=== PATIENT | male | born 1980 | race Caucasian/White ===

== ENCOUNTER 2017-12-26 12:14 | Observation (INO) ==
[2017-12-26] MEDS ORDERED: 0.9 % Sodium Chloride 1,000 ML IVC ONE ×2 (13:10→14:51)
[2017-12-26 13:11] LABS: Bilirubin,Urine Negative (Negative); Blood,Urine Negative (Negative); Clarity,Urine Clear (Clear); Color,Urine Yellow (Yellow); Glucose,Urine (UA) >=1000 mg/dL (Normal); Ketones,Urine 40 mg/dL (Negative); Leukocyte Esterase,Urine Negative (Negative); Nitrite,Urine Negative (Negative); Protein,Urine Negative (Neg-Trace); Specific Gravity,Urine > 1.030 (1.010-1.025); Urobilinogen,Urine Normal (Normal)
[2017-12-26 13:28] LABS: Basophils % 0.3 %; Eosinophils # 0.1 K/mcL (0.0-0.6); Eosinophils % 0.9 %; Hematocrit 37.6 % (37.5-50.1); Hemoglobin 12.8 g/dL (12.9-16.9); Immature Granulocytes % 0.3 % (0-4); Lymphocytes # 1.3 K/mcL (0.6-4.6); Lymphocytes % 20.3 %; Mean Corpuscular Hemoglobin 31.8 pg (28.0-33.3); Mean Corpuscular Volume 93.3 fL (83.0-100.0); Mean Platelet Volume 10.4 fL (9.4-12.4); Monocytes # 0.4 K/mcL (0.0-1.3); Monocytes % 6.6 %; Neutrophils # 4.7 K/mcL (1.6-8.9); Platelet Count 111 K/mcL (140-400); Red Blood Count 4.03 M/mcL (4.19-5.50); Red Cell Distribution Width 12.5 % (11.5-14.5); Segmented Neutrophils % 71.6 %
--- NOTE | 2017-12-26 14:15 | Emergency Department Note ---
Disposition Clinical Impression: Hyperglycemia, Bilateral lower extremity edema, Anxiety and depression, Tobacco abuse Hepatitis C Qualifiers: Viral hepatitis chronicity: chronic Hepatic coma status: without hepatic coma Qualified Code(s): B18.2 - Chronic viral hepatitis C Diabetes mellitus Qualifiers: Diabetes mellitus type: type 2 Diabetes mellitus long-term insulin use: without termite control representative use Diabetes mellitus complication status: with hyperglycemia Qualified Code(s): E11.65 - Type 2 diabetes mellitus with hyperglycemia Disposition: Admitted As Inpatient Condition: Good Time of Disposition: 16:29 General Adult HPI - General Chief complaint: ED General Medical Stated complaint: Bi-lateral leg swelling,Diabetic Time Seen by Provider: 12/26/17 12:54 Source: patient, family Limitations: no limitations Nursing Notes Reviewed: Yes Vital Signs Reviewed: Yes - History of Present Illness HPI Narrative: 37-year-old male with known past medical history of type 2 diabetes insulin Dependent presenting to the emergency Department chief complaint of bilateral lower extremity edema. Patient states the swelling has been going on for a few days. Denies any other complaints at this time. Denies chest pain, shortness of breath, dizziness or headache. Patient states he washed his glucometer and has not been able to check his glucose at home. According to friend in the room , patient has not been controlling his glucose at home. His recently and the patient is moving from [place]. He has not been taking care of himself. Patient is cachectic in the room. Pain Scale: 9 - Related Data Home Medications Medication Instructions Recorded Confirmed Cyclobenzaprine [Flexeril] 10 mg PO TID PRN 12/26/17 Insulin Admin. Supplies 12 unit SQ BID 12/26/17 Lisinopril [Zestril] 20 mg PO DAILY 12/26/17 Quetiapine Fumarate [Seroquel] 200 mg PO BID 12/27/17 Allergies Allergy/AdvReac Type Severity Reaction Status Date / Time Penicillins Allergy Difficulty Verified 12/26/17 12:51 Breathing All systems ED: reviewed and negative except as stated. Musculoskeletal: Reports: other (lower extremity swelling) Past Medical History - Past Medical History Attestation: Yes The following information was validated with the patient. Medical history: Reports: diabetes Psychiatric history: Reports: anxiety - Social History Smoking Status: Current every day smoker Smokeless Tobacco Status: No Alcohol use: Reports: none Drug use: Reports: none Physical Exam - General Limitations: no limitations General appearance: alert, in no apparent distress - Head Head exam: atraumatic, normocephalic, normal inspection - Eye Eye exam: Present: normal appearance. Absent: scleral icterus, conjunctival injection - ENT ENT exam: mucous membranes dry - Neck Neck exam: Present: normal inspection, full ROM. Absent: tenderness, meningismus - Chest Chest inspection: Present: normal inspection, symmetric chest wall rise. Absent : tenderness, rash - Respiratory Respiratory exam: Present: normal lung sounds bilaterally. Absent: respiratory distress, wheezes - Cardiovascular Cardiovascular exam: Present: regular rate, normal rhythm, normal heart sounds - Abdominal Exam Abdominal exam: Present: soft, Non-Tender. Absent: distention, guarding, rebound - Extremities Exam Extremities exam: Present: full ROM, other (Bilateral lower extremity 1+ pitting edema neurovascularly intact.) - Neurological Exam Neurological exam: Present: alert, oriented X3 - Psychiatric Psychiatric exam: Present: normal affect, normal mood - Skin Skin exam: Present: warm, intact Course Course Narrative: 37-year-old male presenting to the emergency Department chief complaint of bilateral lower extremity edema. Patient is cachectic on exam. Patient putting care glucose upon arrival was greater than 600. Concern for DKA and malnutrition at this time. We will perform DKA workup and provide the patient with 2 L of fluid at this time. Patient most likely will be admitted pending results. Patient is alert and oriented 3 in the room with stable vital signs. He agrees with this plan. - Reevaluation(s) Reevaluation #1: Patient's glucose 979. Patient is not acidotic on the VBG. Bicarbonate is not below 20. We will provide the patient with 16 units of subcutaneous insulin and a maintenance fluid of 125 mL. Patient also has decreased albumin. Patient also found to have elevated liver enzymes. Patient has no previous values to compare this to. At this time we will plan to admit the patient at this time for hyperglycemia and possible social work consult. Patient is alert and oriented 3 in the room with stable vital signs. He agrees with this plan. I spoke with the hospital was food production associate Dr. Mortensen who agrees to accept the patient at this time. Vital Signs Temperature 97.0 F L 12/26/17 12:21 Pulse Rate 87 12/26/17 12:21 Respiratory Rate 16 12/26/17 12:21 Blood Pressure 140/87 12/26/17 12:21 O2 Sat by Pulse Oximetry 98 12/26/17 12:21 Temperature 97.7 F 12/28/17 03:50 Pulse Rate 74 12/28/17 03:50 Respiratory Rate 17 12/28/17 03:50 Blood Pressure 107/74 12/28/17 03:50 O2 Sat by Pulse Oximetry 98 12/28/17 03:50 Oxygen Delivery Oxygen Delivery Room Air Medical Decision Making - Medical Records Medical records reviewed: Yes I reviewed the patient's medical records. - Lab Data Lab results reviewed: Yes I reviewed the patient's lab results. Result diagrams: 12/27/17 03:23 12/28/17 04:42 Lab Results 12/26/17 12/26/17 12/26/17 Range/Units 12:32 12:34 12:50 WBC (4.3-11.1) K/mcL RBC (4.19-5.50) M/mcL Hgb (12.9-16.9) g/dL Hct (37.5-50.1) % MCV (83.0-100.0) fL MCH (28.0-33.3) pg MCHC (31.6-35.5) g/dL RDW (11.5-14.5) % Plt Count (140-400) K/mcL MPV (9.4-12.4) fL Immature Gran % (0-4) % Seg Neutrophils % % Lymphocytes % % Monocytes % % Eosinophils % % Basophils % % Neutrophils # (1.6-8.9) K/mcL Lymphocytes # (0.6-4.6) K/mcL Monocytes # (0.0-1.3) K/mcL Eosinophils # (0.0-0.6) K/mcL Basophils # (0.0-0.2) K/mcL VBG pH (7.32-7.42) pH Units VBG pCO2 (41-51) mmHg VBG pO2 (25-50) mmHg VBG HCO3 (21-27) mEq/L Sodium (136-145) mEq/L Potassium (3.5-5.1) mEq/L Chloride (98-107) mEq/L Carbon Dioxide (23-29) mEq/L BUN (6-20) mg/dL Creatinine (0.70-1.30) mg/dL Est GFR ( Amer) (> 60) Est GFR (Non-Af Amer) (> 60) BUN/Creatinine Ratio (6-26) Glucose (70-105) mg/dL POC Glucose > 600 H* > 600 H* (58-89) Calculated Osmolality (280-300) Calcium (8.6-10.3) mg/dL Magnesium (1.6-2.6) mg/dL Total Bilirubin (0.3-1.0) mg/dL AST (13-39) Units/L ALT (7-52) Units/L Alkaline Phosphatase (34-104) Units/L B-Natriuretic Peptide (Less than 100) pg/mL Serum Total Protein (6.4-8.9) g/dL Albumin (3.5-5.7) g/dL Globulin (2.4-3.5) g/dL Albumin/Globulin Ratio (1.1-2.2) Beta-Hydroxybutyric Acd (0.02-0.27) mmol/L Urine Color Yellow (Yellow) Urine Clarity Clear (Clear) Urine pH 6.0 (5.0-8.0) pH Units Ur Specific [place] > 1.030 H (1.010-1.025) Urine Protein Negative (Neg-Trace) mg/dL Urine Glucose (UA) >=1000 H (Normal) mg/dL Urine Ketones 40 H (Negative) mg/dL Urine Blood Negative (Negative) Urine Nitrite Negative (Negative) Urine Bilirubin Negative (Negative) Urine Urobilinogen Normal (Normal) mg/dL Ur Leukocyte Esterase Negative (Negative) Ur Culture Indicated? NO (NO) 12/26/17 12/26/17 12/26/17 Range/Units 13:21 13:21 13:21 WBC 6.6 (4.3-11.1) K/mcL RBC 4.03 L (4.19-5.50) M/mcL Hgb 12.8 L (12.9-16.9) g/dL Hct 37.6 (37.5-50.1) % MCV 93.3 (83.0-100.0) fL MCH 31.8 (28.0-33.3) pg MCHC 34.0 (31.6-35.5) g/dL RDW 12.5 (11.5-14.5) % Plt Count 111 L (140-400) K/mcL MPV 10.4 (9.4-12.4) fL Immature Gran % 0.3 (0-4) % Seg Neutrophils % 71.6 % Lymphocytes % 20.3 % Monocytes % 6.6 % Eosinophils % 0.9 % Basophils % 0.3 % Neutrophils # 4.7 (1.6-8.9) K/mcL Lymphocytes # 1.3 (0.6-4.6) K/mcL Monocytes # 0.4 (0.0-1.3) K/mcL Eosinophils # 0.1 (0.0-0.6) K/mcL Basophils # 0.0 (0.0-0.2) K/mcL VBG pH (7.32-7.42) pH Units VBG pCO2 (41-51) mmHg VBG pO2 (25-50) mmHg VBG HCO3 (21-27) mEq/L Sodium 123 L (136-145) mEq/L Potassium 4.5 (3.5-5.1) mEq/L Chloride 86 L (98-107) mEq/L Carbon Dioxide 26 (23-29) mEq/L BUN 18 (6-20) mg/dL Creatinine 0.70 (0.70-1.30) mg/dL Est GFR ( Amer) > 60 (> 60) Est GFR (Non-Af Amer) > 60 (> 60) BUN/Creatinine Ratio 26 (6-26) Glucose 979 H* (70-105) mg/dL POC Glucose (58-89) Calculated Osmolality 307 H (280-300) Calcium 8.8 (8.6-10.3) mg/dL Magnesium 1.8 (1.6-2.6) mg/dL Total Bilirubin 0.5 (0.3-1.0) mg/dL AST 194 H (13-39) Units/L ALT 122 H (7-52) Units/L Alkaline Phosphatase 217 H (34-104) Units/L B-Natriuretic Peptide (Less than 100) pg/mL Serum Total Protein 6.4 (6.4-8.9) g/dL Albumin 3.4 L (3.5-5.7) g/dL Globulin 3.0 (2.4-3.5) g/dL Albumin/Globulin Ratio 1.1 (1.1-2.2) Beta-Hydroxybutyric Acd > 2.00 H (0.02-0.27) mmol/L Urine Color (Yellow) Urine Clarity (Clear) Urine pH (5.0-8.0) pH Units Ur Specific [place] (1.010-1.025) Urine Protein (Neg-Trace) mg/dL Urine Glucose (UA) (Normal) mg/dL Urine Ketones (Negative) mg/dL Urine Blood (Negative) Urine Nitrite (Negative) Urine Bilirubin (Negative) Urine Urobilinogen (Normal) mg/dL Ur Leukocyte Esterase (Negative) Ur Culture Indicated? (NO) 12/26/17 12/26/17 Range/Units 13:21 14:30 WBC (4.3-11.1) K/mcL RBC (4.19-5.50) M/mcL Hgb (12.9-16.9) g/dL Hct (37.5-50.1) % MCV (83.0-100.0) fL MCH (28.0-33.3) pg MCHC (31.6-35.5) g/dL RDW (11.5-14.5) % Plt Count (140-400) K/mcL MPV (9.4-12.4) fL Immature Gran % (0-4) % Seg Neutrophils % % Lymphocytes % % Monocytes % % Eosinophils % % Basophils % % Neutrophils # (1.6-8.9) K/mcL Lymphocytes # (0.6-4.6) K/mcL Monocytes # (0.0-1.3) K/mcL Eosinophils # (0.0-0.6) K/mcL Basophils # (0.0-0.2) K/mcL VBG pH 7.41 (7.32-7.42) pH Units VBG pCO2 39 L (41-51) mmHg VBG pO2 119 H (25-50) mmHg VBG HCO3 25 (21-27) mEq/L Sodium (136-145) mEq/L Potassium (3.5-5.1) mEq/L Chloride (98-107) mEq/L Carbon Dioxide (23-29) mEq/L BUN (6-20) mg/dL Creatinine (0.70-1.30) mg/dL Est GFR ( Amer) (> 60) Est GFR (Non-Af Amer) (> 60) BUN/Creatinine Ratio (6-26) Glucose (70-105) mg/dL POC Glucose (58-89) Calculated Osmolality (280-300) Calcium (8.6-10.3) mg/dL Magnesium (1.6-2.6) mg/dL Total Bilirubin (0.3-1.0) mg/dL AST (13-39) Units/L ALT (7-52) Units/L Alkaline Phosphatase (34-104) Units/L B-Natriuretic Peptide 50 (Less than 100) pg/mL Serum Total Protein (6.4-8.9) g/dL Albumin (3.5-5.7) g/dL Globulin (2.4-3.5) g/dL Albumin/Globulin Ratio (1.1-2.2) Beta-Hydroxybutyric Acd (0.02-0.27) mmol/L Urine Color (Yellow) Urine Clarity (Clear) Urine pH (5.0-8.0) pH Units Ur Specific [place] (1.010-1.025) Urine Protein (Neg-Trace) mg/dL Urine Glucose (UA) (Normal) mg/dL Urine Ketones (Negative) mg/dL Urine Blood (Negative) Urine Nitrite (Negative) Urine Bilirubin (Negative) Urine Urobilinogen (Normal) mg/dL Ur Leukocyte Esterase (Negative) Ur Culture Indicated? (NO) - EKG Data EKG #1 EKG attestation: Yes I reviewed and interpreted this EKG. EKG results narrative: Sinus rhythm. 70 bpm. WI interval 151, QRS 105, QTC 426. No signs of acute ST segment elevation or ischemia. Attestation Statement - Attestation Attestation: I examined this patient and my medical decision-making was reviewed with the Resident Physician, Dr. Garcia. I agree with the documented findings, disposition and treatment plan as described except to the extent set forth below. Patient is a 37-year-old white male who presents to the emergency department today with history of diabetes that is poorly controlled stating that his sugars are elevated and he is "not been feeling well". Patient appears cachectic, malnourished, and states that he is "not been doing well since his passed recently" and admittedly reports noncompliance with his medication regimen and not caring for himself. Patient recently moved from [place] and is not obtained at new physician in the area or had meds for some time. Patient denies any chest pain pressure or heaviness, no shortness of breath, no recent upper respiratory symptoms cough or sore throat, he is feeling nauseated with decreased appetite but no vomiting, no bowel changes and no abdominal pain or flank pain. Patient denies any suicidal or homicidal ideation but is tearful at times stating that he is just not been dealing very well for his 's . Physical exam findings as documented. Patient was in no acute distress but ill appearing at bedside on arrival. Patient had 2 L of IV fluids administered, labs drawn and sent as well as urinalysis. Suspicion for possible DKA but no obvious underlying infectious etiology more due to noncompliance. Patient with significantly elevated blood sugar at 979 with no acidosis. Patient received 2 L of fluids and then was converted to a maintenance IV as well as subcutaneous insulin. Patient has mild elevation in LFTs possibly related to hep C. Case was discussed with the hospitalist who accepted the patient for admission for further evaluation and management as well as case management social worker consult.
[2017-12-26] MEDS ORDERED: Ipratropium/Albuterol Neb 3 ML IH ONE (14:20)
[2017-12-26 14:33] LABS: VBG HCO3 25 mEq/L (21-27); VBG PCO2 39 mmHg (41-51); VBG PH 7.41 pH Units (7.32-7.42); VBG PO2 119 mmHg (25-50)
[2017-12-26 14:44] LABS: Alanine Aminotransferase 122 Units/L (7-52); Albumin 3.4 g/dL (3.5-5.7); Albumin/Globulin Ratio 1.1 (1.1-2.2); Alkaline Phosphatase 217 Units/L (34-104); Aspartate Amino Transferase 194 Units/L (13-39); BUN/Creatinine Ratio 26 (6-26); Bilirubin,Total 0.5 mg/dL (0.3-1.0); Blood Urea Nitrogen 18 mg/dL (6-20); Calcium 8.8 mg/dL (8.6-10.3); Carbon Dioxide 26 mEq/L (23-29); Chloride 86 mEq/L (98-107); Magnesium 1.8 mg/dL (1.6-2.6); Potassium 4.5 mEq/L (3.5-5.1); Sodium 123 mEq/L (136-145); Total Protein 6.4 g/dL (6.4-8.9); eGFR For African Americans > 60 (> 60); eGFR For Non-African Americans > 60 (> 60)
[2017-12-26] MEDS ORDERED: Ketorolac 15 MG/ML VIAL IVP ONE (14:57)
[2017-12-26 15:39] LABS: Osmolality,Calculated 307 (280-300)
[2017-12-26 15:42] LABS: Glucose 979 mg/dL (70-105)
[2017-12-26] MEDS ORDERED: Insulin Regular, Human 100 UNIT/ML SQ ONE (15:44)
[2017-12-26] MEDS ORDERED: *HR* LORazepam 0.5 MG TABLET PO ONE (16:10)
[2017-12-26] MEDS ORDERED: Naloxone 0.4 MG/ML INJ IVP PRN (18:40)
[2017-12-26] MEDS ORDERED: *HR* Dextrose 50 % in Water (Syg) 50 ML SYRINGE IVP PRN (18:42)
[2017-12-26] MEDS ORDERED: Dextrose Gel 15 GM/37.5 ML TUBE PO PRN ×2 (18:42)
[2017-12-26] MEDS ORDERED: D5% in Water 1,000 ML IVC PRN (18:42)
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
[2017-12-26] MEDS: 0.9 % Sodium Chloride 1,000 ML IVC SCH (19:38)
[2017-12-26 20:12] LABS: BUN/Creatinine Ratio 17 (6-26); Blood Urea Nitrogen 14 mg/dL (6-20); Calcium 9.2 mg/dL (8.6-10.3); Carbon Dioxide 22 mEq/L (23-29); Chloride 93 mEq/L (98-107); Glucose 510 mg/dL (70-105); Osmolality,Calculated 295 (280-300); Potassium 3.8 mEq/L (3.5-5.1); Sodium 131 mEq/L (136-145); eGFR For African Americans > 60 (> 60); eGFR For Non-African Americans > 60 (> 60)
[2017-12-26] MEDS: Insulin DETEMIR 100 UNIT/ML X5UNITS SQ SCH (20:53)
[2017-12-26] MEDS ORDERED: Insulin LISPRO 300 UNITS/3 ML VIAL SQ SCH (21:00)
[2017-12-26] MEDS: *HR* OxyCODONE Immed Rel 5 MG TABLET PO PRN (21:40)
[2017-12-26 22:04] LABS: Amphetamine Screen,Urine Negative ng/mL (Cutoff=1000); Barbiturate Screen,Urine Negative ng/mL (Cutoff=200); Benzodiazepines Screen,Urine Negative ng/mL (Cutoff=200); Cannabinoid Screen,Urine Negative ng/mL (Cutoff = 50); Cocaine Screen,Urine Positive ng/mL (Cutoff= 300); Opiate Screen,Urine Positive ng/mL (Cutoff=300); Phencyclidine Screen,Urine Negative ng/mL (Cutoff=25)
[2017-12-26] MEDS ORDERED: Insulin LISPRO 300 UNITS/3 ML VIAL SQ ONE (23:45)
[2017-12-27] MEDS: ALPRAZolam 0.5 MG TABLET PO PRN ×3 (00:55→21:20)
[2017-12-27] MEDS: traMADol 50 MG TABLET PO PRN ×2 (00:57→15:55)
[2017-12-27] MEDS ORDERED: Gabapentin 300 MG CAPSULE PO ONE (01:13)
[2017-12-27] MEDS: Nicotine 21 MG PATCH.TD24 TD SCH ×2 (01:53→10:15)
[2017-12-27 04:10] LABS: Basophils % 0.5 %; Eosinophils # 0.1 K/mcL (0.0-0.6); Eosinophils % 1.9 %; Hematocrit 33.1 % (37.5-50.1); Hemoglobin 11.8 g/dL (12.9-16.9); Immature Granulocytes % 0.2 % (0-4); Lymphocytes # 2.5 K/mcL (0.6-4.6); Mean Corpuscular HGB Conc 35.6 g/dL (31.6-35.5); Mean Corpuscular Hemoglobin 31.7 pg (28.0-33.3); Mean Platelet Volume 10.8 fL (9.4-12.4); Monocytes # 0.5 K/mcL (0.0-1.3); Monocytes % 7.9 %; Neutrophils # 2.8 K/mcL (1.6-8.9); Platelet Count 117 K/mcL (140-400); Red Blood Count 3.72 M/mcL (4.19-5.50); Red Cell Distribution Width 12.5 % (11.5-14.5); Segmented Neutrophils % 47.5 %
[2017-12-27 04:32] LABS: Alanine Aminotransferase 101 Units/L (7-52); Albumin 2.9 g/dL (3.5-5.7); Albumin/Globulin Ratio 1.2 (1.1-2.2); Alkaline Phosphatase 135 Units/L (34-104); Aspartate Amino Transferase 118 Units/L (13-39); BUN/Creatinine Ratio 20 (6-26); Bilirubin,Total 0.4 mg/dL (0.3-1.0); Blood Urea Nitrogen 13 mg/dL (6-20); Calcium 8.5 mg/dL (8.6-10.3); Carbon Dioxide 30 mEq/L (23-29); Chloride 99 mEq/L (98-107); Globulin 2.5 g/dL (2.4-3.5); Glucose 343 mg/dL (70-105); Osmolality,Calculated 290 (280-300); Potassium 3.7 mEq/L (3.5-5.1); Sodium 133 mEq/L (136-145); Total Protein 5.4 g/dL (6.4-8.9); eGFR For African Americans > 60 (> 60); eGFR For Non-African Americans > 60 (> 60)
[2017-12-27] MEDS ORDERED: Insulin LISPRO 300 UNITS/3 ML VIAL SQ SCH ×5 (07:30→21:00)
[2017-12-27] MEDS: 0.9 % Sodium Chloride 1,000 ML IVC SCH ×2 (07:44→07:45)
[2017-12-27] MEDS ORDERED: Nicotine 21 MG PATCH.TD24 TD SCH (09:00)
[2017-12-27] MEDS: Insulin DETEMIR 100 UNIT/ML X5UNITS SQ SCH ×2 (10:14→22:14)
[2017-12-27] MEDS: Insulin LISPRO 300 UNITS/3 ML VIAL SQ SCH ×4 (10:16→19:43)
[2017-12-27] MEDS: *HR* Enoxaparin 40 MG/0.4 ML SYRINGE SQ SCH (13:11)
[2017-12-27] MEDS: *HR* OxyCODONE Immed Rel 5 MG TABLET PO PRN ×2 (13:11→19:42)
[2017-12-27 14:42] LABS: Hemoglobin A1C > 18.7 %
[2017-12-27] MEDS: Gabapentin 300 MG CAPSULE PO SCH (21:20)
--- NOTE | 2017-12-27 22:35 | Internal Med Progress Note ---
Date of Encounter: 12/27/17 Time of Encounter: 22:30 - Assessment and plan (1) Bilateral lower extremity edema Current Visit: Yes Status: Acute Assessment and plan: ECHO with LVEF 60-65%, otherwise normal. Continue leg elevation. (2) Hyperglycemia Current Visit: Yes Status: Acute Assessment and plan: Plan as per DM plan below. (3) Anxiety and depression Current Visit: Yes Status: Chronic Assessment and plan: Continue PRN xanax. Will need outpatient psychiatric evaluation. (4) Chronic back pain Current Visit: Yes Status: Chronic Assessment and plan: Chronic issue. Continue tylenol and oxycodone PRN. Qualifiers: Back pain location: low back pain Back pain laterality: midline Sciatica presence: without sciatica Qualified Code(s): M54.5 - Low back pain; G89.29 - Other chronic pain; G89.29 - Other chronic pain (5) Diabetes mellitus Current Visit: Yes Status: Chronic Assessment and plan: Improving. Continue accuchecks and high dose SSI QID AC/HS. Increase levemir to 15 units BID. Increase mealtime lispro to 10 units TID with meals. Plan for discharge tomorrow when blood glucose more lower and more stable with changes. Qualifiers: Diabetes mellitus type: type 2 Diabetes mellitus half-way insulin use: without manager terminal use Diabetes mellitus complication status: with hyperglycemia Qualified Code(s): E11.65 - Type 2 diabetes mellitus with hyperglycemia (6) Hepatitis C Current Visit: Yes Status: Chronic Assessment and plan: Poor outpatient follow up. Abdominal U/S showed hepatomegaly with increased echogenicity of the liver compatible with diffuse hepatocellular disease, hepatic steatosis. Transaminitis, likely related to poor blood glucose, improving. Restart outpatient GI follow up. Recheck CMP in AM. Qualifiers: Viral hepatitis chronicity: chronic Hepatic coma status: without hepatic coma Qualified Code(s): B18.2 - Chronic viral hepatitis C (7) Tobacco abuse Current Visit: Yes Status: Chronic Assessment and plan: Continue nicotine transdermal PRN. (8) DVT prophylaxis Current Visit: Yes Status: Acute Assessment and plan: Continue SC lovenox. - Time Spent With Patient less than 15 minutes - Subjective Interval history: Patient had no acute events overnight. He states that he is doing better this AM. Continues to have some swelling in BLE ankles. He does not recall home insulin regimen. He has some pain in his back, but this is a chronic issue for him. He denies SOB or chest pain. He has no other complaints. - Constitutional Vitals: Temp Pulse Resp BP Pulse Ox 98.3 F 81 18 118/87 98 12/27/17 19:01 12/27/17 19:01 12/27/17 19:01 12/27/17 19:01 12/27/17 19:01 General appearance: Present: cachectic, cooperative, A&O X 3, pleasant, no acute distress, answers questions appropriately - Respiratory Respiratory exam: Present: CTAB. Absent: accessory muscle use, rales, rhonchi, wheezes Additional comments: Normal WOB - Cardiovascular Cardiovascular exam: Present: RRR, +S1, +S2. Absent: diastolic murmur, gallop, rubs, systolic murmur - GI/Abdominal GI/Abdominal exam: Present: normal bowel sounds, soft. Absent: distended, hepatomegaly, mass, splenomegaly, tenderness - Psychiatric Psychiatric exam: Present: normal affect, normal mood. Absent: anxious, depressed - Skin Skin exam: Present: dry, intact, warm. Absent: cyanosis, rash Internal Medicine: Result - Labs CBC & Chem 7: 12/27/17 03:23 12/27/17 03:23 Labs: Short CBC 12/27/17 Range/Units 03:23 WBC 5.9 (4.3-11.1) K/mcL Hgb 11.8 L (12.9-16.9) g/dL Hct 33.1 L (37.5-50.1) % Plt Count 117 L (140-400) K/mcL Neutrophils # 2.8 (1.6-8.9) K/mcL BMP 12/27/17 03:23 Sodium 133 L Potassium 3.7 Chloride 99 Carbon Dioxide 30 H BUN 13 Creatinine 0.65 L Glucose 343 H Calcium 8.5 L Liver Function 12/27/17 Range/Units 03:23 Total Bilirubin 0.4 (0.3-1.0) mg/dL AST 118 H (13-39) Units/L ALT 101 H (7-52) Units/L Alkaline Phosphatase 135 H (34-104) Units/L Albumin 2.9 L (3.5-5.7) g/dL - Impressions Impressions Abdomen Ultrasound 12/27/17 07:00 IMPRESSION: Hepatomegaly with increased echogenicity of the liver compatible with diffuse hepatocellular disease, hepatic steatosis. No definite focal lesion noted. Trace amount of ascites surrounding the liver and within the gallbladder fossa. Gallbladder is incompletely distended and otherwise unremarkable in appearance. Right kidney is increased in echogenicity. There is mild fullness of the renal collecting system. Please correlate with patient's urinalysis and renal function. D/ / 12/27/2017 09:12:28 Wero Jimenez MD / nate Interpreting Provider: Wero Jimenez MD Echocardiogram 12/27/17 08:46 Impressions: LVEF 60-65%. Normal LV chamber size, wall thickness and function. Normal left ventricular diastolic function. Normal right ventricular structure and function. No evidence of pulmonary hypertension. There is a trivial pericardial effusion present. Left Ventricular Wall Motion: Rest Echo Findings All wall segments showed normal motion. Findings: Study Quality * Technically adequate exam. ECG Findings * Normal sinus rhythm. Left Ventricle * LVEF 60-65%. * Normal LV chamber size, wall thickness and function. * Normal left ventricular diastolic function. Right Ventricle * Normal right ventricular structure and function. Left Atrium * Mildly dilated left atrium. Right Atrium * Normal right atrial size. Interatrial Septum * No evidence of PFO by color Doppler. Aortic Valve * Trileaflet aortic valve with normal function. * No aortic regurgitation. * No aortic stenosis. Mitral Valve * Normal mitral valve structure and function. * No mitral regurgitation. * No mitral stenosis. Tricuspid Valve * Normal tricuspid valve structure and function. * Trace tricuspid regurgitation. * No evidence of pulmonary hypertension. Pulmonic Valve * Normal pulmonic valve structure and function. * No pulmonic regurgitation. Aorta * Normally sized aortic root. Pericardium * There is a trivial pericardial effusion present. IVC * Normal IVC dimensions and inspiratory collapse. Pulmonary Artery * Normal visualized portions of the main pulmonary artery. Consult Discharge Plan - Plan Referrals: NONE,PCP [Primary Care Provider] - Felix Chew [Family Provider] -
[2017-12-28] MEDS: *HR* OxyCODONE Immed Rel 5 MG TABLET PO PRN ×3 (02:01→15:00)
[2017-12-28] MEDS: Insulin LISPRO 300 UNITS/3 ML VIAL SQ SCH ×7 (02:02→12:46)
[2017-12-28] MEDS: *HR* Enoxaparin 40 MG/0.4 ML SYRINGE SQ SCH (05:05)
[2017-12-28] MEDS: ALPRAZolam 0.5 MG TABLET PO PRN ×2 (05:13→12:45)
[2017-12-28 05:29] LABS: Alanine Aminotransferase 232 Units/L (7-52); Albumin/Globulin Ratio 1.1 (1.1-2.2); Alkaline Phosphatase 155 Units/L (34-104); Aspartate Amino Transferase 535 Units/L (13-39); BUN/Creatinine Ratio 14 (6-26); Bilirubin,Total 0.4 mg/dL (0.3-1.0); Blood Urea Nitrogen 8 mg/dL (6-20); Calcium 8.5 mg/dL (8.6-10.3); Carbon Dioxide 26 mEq/L (23-29); Chloride 97 mEq/L (98-107); Globulin 2.8 g/dL (2.4-3.5); Glucose 351 mg/dL (70-105); Osmolality,Calculated 280 (280-300); Potassium 3.5 mEq/L (3.5-5.1); Sodium 129 mEq/L (136-145); Total Protein 5.8 g/dL (6.4-8.9); eGFR For African Americans > 60 (> 60); eGFR For Non-African Americans > 60 (> 60)
[2017-12-28] MEDS: Nicotine 21 MG PATCH.TD24 TD SCH (08:05)
[2017-12-28] MEDS: Gabapentin 300 MG CAPSULE PO SCH ×2 (08:05→15:00)
[2017-12-28] MEDS: Insulin DETEMIR 100 UNIT/ML X5UNITS SQ SCH (08:06)
[2017-12-28 11:53] VITALS: BP 105/74
[2017-12-28] MEDS: traMADol 50 MG TABLET PO PRN (12:45)
--- NOTE | 2017-12-28 14:49 | Discharge Summary ---
- NOTES TO OUTPATIENT PROVIDER Notes to Outpatient Provider: Follow up with new PCP in 2-3 days after discharge. Recheck CMP at that time. Will need referral by PCP to GI for hepatitis C management. Date of Encounter: 12/28/17 Time of Encounter: 14:47 - Discharge Diagnosis (1) Hyperglycemia Priority: Primary Status: Acute (2) Bilateral lower extremity edema Priority: Secondary Status: Acute (3) Anxiety and depression Priority: Secondary Status: Chronic (4) Chronic back pain Priority: Secondary Status: Chronic Qualifiers: Back pain location: low back pain Back pain laterality: midline Sciatica presence: without sciatica Qualified Code(s): M54.5 - Low back pain; G89.29 - Other chronic pain; G89.29 - Other chronic pain (5) Diabetes mellitus Priority: Secondary Status: Chronic Qualifiers: Diabetes mellitus type: type 2 Diabetes mellitus care home insulin use: without care home use Diabetes mellitus complication status: with hyperglycemia Qualified Code(s): E11.65 - Type 2 diabetes mellitus with hyperglycemia (6) Hepatitis C Priority: Secondary Status: Chronic Qualifiers: Viral hepatitis chronicity: chronic Hepatic coma status: without hepatic coma Qualified Code(s): B18.2 - Chronic viral hepatitis C (7) Tobacco abuse Priority: Secondary Status: Chronic (8) DVT prophylaxis Priority: Secondary Status: Acute Hospital course: Mr. Taveras is a 37 year old male admitted for BLE edema and hyperglycemia. He was admitted for observation to general medical floor with telemetry. Given BLE edema, ECHO was obtained and showed LVEF of 60-65% with no abnormalities noted. Given history of hepatitis C and transaminitis, abdominal/liver ultrasound was obtained and showed hepatomegaly with increased echogenicity of the liver compatible with diffuse hepatocellular disease, hepatic steatosis; trace ascites surrounding liver; unremarkable gallbladder; and mild fullness of renal collecting system. BLE edema nearly resolved on day of discharge with elevation of feet and correction of hyperglycemia. Hyperglycemia greatly improved with administration of high dose sliding scale insulin QID AC/HS. He did not recall home insulin regimen, so started on and titrate levemir to 15 units BID and lispro 10 units TID with meals. He will be discharged home with 7 days of all home medications. He will establish with new PCP and follow up in 2-3 days after discharge. Patient has met maximum benefit of this hospitalization and will be discharged home in stable condition. Discharge discussed with: patient, nurse - Time Spent with Patient Total time spent providing and/or coordinating discharge services: Greater than 30 minutes - Discharge Medications Prescriptions: OxyCODONE Immed Rel [Roxicodone 5 MG] 10 mg PO Q6HR PRN 7 Days #28 tablet PRN Reason: Severe Pain ALPRAZolam [Xanax 0.5 MG Tablet] 0.5 mg PO Q8HR PRN 7 Days #21 tablet PRN Reason: Anxiety Cyclobenzaprine [Flexeril] 10 mg PO TID PRN 7 Days #21 tablet PRN Reason: Muscle Spasm Gabapentin [Neurontin] 600 mg PO TID 7 Days #21 capsule Insulin DETEMIR [Levemir] 15 unit SQ BID 7 Days #1 vial Insulin LISPRO [HumaLOG] 10 units SQ TIDAC 7 Days #1 vial Lisinopril [Zestril] 20 mg PO DAILY 7 Days #7 tablet Quetiapine Fumarate [Seroquel] 200 mg PO BID 7 Days #14 tablet Home Medications: ALPRAZolam [Xanax 0.5 MG Tablet] 0.5 mg PO Q8HR PRN 7 Days #21 tablet 12/28/17 [ Rx] Cyclobenzaprine [Flexeril] 10 mg PO TID PRN 7 Days #21 tablet 12/28/17 [Rx] Gabapentin [Neurontin] 600 mg PO TID 7 Days #21 capsule 12/28/17 [Rx] Insulin DETEMIR [Levemir] 15 unit SQ BID 7 Days #1 vial 12/28/17 [Rx] Insulin LISPRO [HumaLOG] 10 units SQ TIDAC 7 Days #1 vial 12/28/17 [Rx] Lisinopril [Zestril] 20 mg PO DAILY 7 Days #7 tablet 12/28/17 [Rx] OxyCODONE Immed Rel [Roxicodone 5 MG] 10 mg PO Q6HR PRN 7 Days #28 tablet [Rx] Quetiapine Fumarate [Seroquel] 200 mg PO BID 7 Days #14 tablet 12/28/17 [Rx] Allergies/Adverse Reactions: 3 Allergy/AdvReac Type Severity Reaction Status Date / Time Penicillins Allergy Difficulty Verified 12/26/17 12:51 Breathing Date of admission: 12/26/17 19:29 Primary care physician: PCP NONE Consults: 12/26/17 21:11 Consult to Nutrition [CONS] Routine Comment: Recent weight loss, non-compliant diabetic Consulting Provider: NUTRITION Reason for Dietary Consult: Diet Education MST Score Other 12/27/17 08:53 Consult to Diabetes Education [CONS] Stat Comment: Reason for Consult: DM Education 12/28/17 08:07 Consult to Diabetes Education [CONS] Stat Comment: Reason for Consult: DM Education Discharging clinician: Ayaan Milton Anticipated date of discharge: 12/28/17 - Constitutional Vitals: Temp Pulse Resp BP Pulse Ox 98.7 F 81 14 105/74 97 12/28/17 11:48 12/28/17 11:48 12/28/17 11:48 12/28/17 11:48 12/28/17 11:48 General appearance: Present: cachectic, cooperative, A&O X 3, pleasant, no acute distress, answers questions appropriately - Respiratory Respiratory exam: Present: CTAB. Absent: accessory muscle use, rales, rhonchi, wheezes Additional comments: Normal WOB - Cardiovascular Cardiovascular exam: Present: RRR, +S1, +S2. Absent: diastolic murmur, gallop, rubs, systolic murmur Additional comments: Trace ankle edema, greatly improved from yesterday - GI/Abdominal GI/Abdominal exam: Present: normal bowel sounds, soft. Absent: distended, hepatomegaly, mass, splenomegaly, tenderness - Psychiatric Psychiatric exam: Present: normal affect, normal mood. Absent: anxious, depressed - Skin Skin exam: Present: dry, intact, warm. Absent: cyanosis, rash - Patient Status Disposition: Home, Self-Care Condition: Good Functional capacity at discharge: independent ambulation Overall status at discharge: patient is progressing back to baseline - Discharge Instructions Follow Up With: NONE,PCP [Primary Care Provider] - Felix Chew [Family Provider] - Additional Instructions: Follow up with new PCP in 2-3 days after discharge. Recheck CMP at that time. Will need referral by PCP to GI for hepatitis C management. - Diet and Activity Activity: resume usual activities as tolerated Diet: diabetic diet
[2017-12-28] MEDS ORDERED: Insulin LISPRO 300 UNITS/3 ML VIAL SQ SCH (21:00)
--- NOTE | 2017-12-31 16:18 | Electrocardiograph Report ---
[place] [id number] Test Date: 2017-12-26 Pat Name: Lucien Taveras Department: 103 Room: [facility] Gender: M [employer]: MSC : [id number] Requested By: Keya Tejeda Order Number: [id number] Reading MD: Valerie Gong Measurements Intervals [place] Rate: 70 P: 76 MN: 151 QRS: 71 QRSD: 105 T: 51 QT: 404 QTc: 426 Interpretive Statements SINUS RHYTHM Electronically Signed On 12-31-2017 15:49:58 EDT by Valerie Gong
== END 2017-12-28 16:23 | disposition home or self-care (01) ==
LOC: 2NENU 12:14 → EMEROO 12:14 → 2NENU 20:19
PROVIDERS: ADMIT Family Medicine; ATTEND Family Medicine

== ENCOUNTER 2018-05-27 17:46 | Observation (INO) ==
[2018-05-27] MEDS ORDERED: 0.9 % Sodium Chloride 1,000 ML IVC ONE (18:18)
[2018-05-27] MEDS ORDERED: Metoclopramide 10 MG/2 ML VIAL IVP ONE (18:20)
--- NOTE | 2018-05-27 18:23 | Emergency Department Note ---
Disposition Clinical Impression: Acalculous cholecystitis Disposition: Admitted As Inpatient Condition: Good Referrals: NONE,PCP [Primary Care Provider] - Felix Chew [Family Provider] - Forms: ED Satisfaction Letter Time of Disposition: 20:36 General Adult HPI - General Chief complaint: ED Recheck/Abnormal Lab/Rx Stated complaint: multiple complaints Time Seen by Provider: 05/27/18 18:06 Source: patient Limitations: no limitations Nursing Notes Reviewed: Yes Vital Signs Reviewed: Yes - History of Present Illness HPI Narrative: This is a 37-year-old male who comes to emergency department complaining of elevated blood sugar yesterday and took him to another hospital emergency department. He also states that starting 48 hours prior to arrival he has had significant right upper quadrant pain. He reports 3 episodes of diarrhea in 8 hours prior to arrival, stating that he had none prior to that time during the last 2-3 days. He has not measured his blood sugar today but states that he came to the emergency department here because of his worsening right upper quadrant pain. Pain Scale: 9 - Related Data Home Medications Medication Instructions Recorded Confirmed Buspirone HCl [Buspar] 10 mg PO TID 05/27/18 05/27/18 Escitalopram [Lexapro] 5 mg PO DAILY 05/27/18 05/27/18 Famotidine [Pepcid] 20 mg PO BID 05/27/18 05/27/18 Gabapentin [Neurontin] 300 mg PO TID 05/27/18 05/27/18 Ibuprofen [Ibu] 600 mg PO TID PRN 05/27/18 05/27/18 Insulin Glargine,Hum.rec.anlog 16 unit SQ BID 05/27/18 05/27/18 [Basaglar Kwikpen U-100] Insulin LISPRO [HumaLOG] 8 units SQ TIDAC 05/27/18 05/27/18 Quetiapine Fumarate [Seroquel] 50 mg PO HS 05/27/18 05/27/18 Tizanidine HCl [Tizanidine HCl] 4 mg PO TID 05/27/18 05/27/18 Previous Rx's Medication Instructions Recorded Lisinopril [Zestril] 20 mg PO DAILY 7 Days #7 tablet 12/28/17 Allergies Allergy/AdvReac Type Severity Reaction Status Date / Time Penicillins Allergy Difficulty Verified 12/26/17 12:51 Breathing All systems ED: reviewed and negative except as stated. Gastrointestinal: Reports: abdominal pain, diarrhea Endocrine: Reports: polyuria, other (Elevated blood glucose) Past Medical History - Past Medical History Medical history: Reports: diabetes Surgical history: Reports: no surgical history Psychiatric history: Reports: anxiety - Social History Smoking Status: Current every day smoker Smokeless Tobacco Status: No Alcohol use: Reports: none Drug use: Reports: none Physical Exam - General Limitations: no limitations General appearance: alert, in distress (In mild distress), cachectic - Head Head exam: atraumatic, normocephalic, normal inspection - Eye Eye exam: Present: normal appearance, PERRL, EOMI - Neck Neck exam: Present: normal inspection, full ROM, trachea midline - Chest Chest inspection: Present: normal inspection, symmetric chest wall rise - Respiratory Respiratory exam: Present: normal lung sounds bilaterally - Cardiovascular Cardiovascular exam: Present: regular rate, normal rhythm, normal heart sounds - Abdominal Exam Abdominal exam: Present: soft, tenderness Abdominal tenderness: Present: RUQ. Absent: RLQ, LUQ, LLQ, epigastrium - Extremities Exam Extremities exam: Present: normal inspection, full ROM, pedal edema (There is nonpitting bilateral pedal edema at the malleoli.). Absent: tenderness - Neurological Exam Neurological exam: Present: alert, oriented X3 - Psychiatric Psychiatric exam: Present: depressed, other (He appears mildly depressed, but displays no intense to harm himself or others) - Skin Skin exam: Present: warm, dry, intact, normal color Course Course Narrative: This is a 37-year-old male who reports chronic pain issues who comes to emergency department with right upper quadrant tenderness and poorly controlled blood glucose. Vital Signs Temperature 97.4 F L 05/27/18 17:57 Pulse Rate 85 05/27/18 17:57 Respiratory Rate 16 05/27/18 17:57 Blood Pressure 101/72 05/27/18 17:57 O2 Sat by Pulse Oximetry 97 05/27/18 17:57 Temperature 97.4 F L 05/27/18 18:18 Pulse Rate 85 05/27/18 18:18 Respiratory Rate 16 05/27/18 18:18 Blood Pressure 101/72 05/27/18 18:18 O2 Sat by Pulse Oximetry 97 05/27/18 18:18 Oxygen Delivery Oxygen Delivery Room Air Medical Decision Making - MDM Narrative Medical decision making narrative: This is a 37-year-old male with pronounced right upper quadrant tenderness. Concern is for cholecystitis. I discussed his case with Dr. Abbott, the on-call surgeon, at 7:58 PM, and Dr. Abbott asked that he be admitted to the hospitalist service and asked that I order an MRCP to further evaluate his elevated bilirubin. I discussed his case with the on-call hospitalist, who accepted him for admission - Lab Data Lab results narrative: CBC was unremarkable BMP was unremarkable LFT showed elevated bilirubin both total, direct, indirect, and elevated AST at over 3000 with elevated ALTs at 500 and slightly elevated alkaline phosphatase Result diagrams: 05/27/18 18:46 05/27/18 18:46 Lab Results 05/27/18 05/27/18 05/27/18 Range/Units 18:46 18:46 18:46 WBC 4.5 (4.3-11.1) K/mcL RBC 4.29 (4.19-5.50) M/mcL Hgb 13.3 (12.9-16.9) g/dL Hct 37.6 (37.5-50.1) % MCV 87.6 (83.0-100.0) fL MCH 31.0 (28.0-33.3) pg MCHC 35.4 (31.6-35.5) g/dL RDW 13.3 (11.5-14.5) % Plt Count 83 L (140-400) K/mcL MPV 12.5 H (9.4-12.4) fL Immature Gran % 0.2 (0-4) % Seg Neutrophils % 70.2 % Lymphocytes % 21.8 % Monocytes % 6.9 % Eosinophils % 0.7 % Basophils % 0.2 % Neutrophils # 3.2 (1.6-8.9) K/mcL Lymphocytes # 1.0 (0.6-4.6) K/mcL Monocytes # 0.3 (0.0-1.3) K/mcL Eosinophils # 0.0 (0.0-0.6) K/mcL Basophils # 0.0 (0.0-0.2) K/mcL Nucleated RBCs/100 WBC 0.4 H (0) /100 WBC Reactive Lymphocytes Present A (Not Present) Platelet Estimate Decreased L (Normal) Immature Plt Fraction 10.9 H (1.1-6.1) % Sodium 129 L (136-145) mEq/L Potassium 3.9 (3.5-5.1) mEq/L Chloride 97 L (98-107) mEq/L Carbon Dioxide 27 (23-29) mEq/L BUN 11 (6-20) mg/dL Creatinine 1.05 (0.70-1.30) mg/dL Est GFR ( Amer) > 60 (> 60) Est GFR (Non-Af Amer) > 60 (> 60) BUN/Creatinine Ratio 10 (6-26) Glucose 323 H (70-105) mg/dL Calculated Osmolality 280 (280-300) Lactic Acid 0.6 (0.5-2.2) mmol/L Calcium 8.3 L (8.6-10.3) mg/dL Total Bilirubin 7.5 H (0.3-1.0) mg/dL Direct Bilirubin 5.2 H (0.0-0.2) mg/dL Indirect Bilirubin 2.3 H (0.0-1.2) mg/dL AST > 3000 H (13-39) Units/L ALT > 500 H (7-52) Units/L Alkaline Phosphatase 363 H (34-104) Units/L Serum Total Protein 5.7 L (6.4-8.9) g/dL Albumin 2.7 L (3.5-5.7) g/dL Globulin 3.0 (2.4-3.5) g/dL Albumin/Globulin Ratio 0.9 L (1.1-2.2) Lipase 21 (11-82) Units/L Urine Color (Yellow) Urine Clarity (Clear) Urine pH (5.0-8.0) pH Units Ur Specific [place] (1.010-1.025) Urine Protein (Neg-Trace) mg/dL Urine Glucose (UA) (Normal) mg/dL Urine Ketones (Negative) mg/dL Urine Blood (Negative) Urine Nitrite (Negative) Urine Bilirubin (Negative) Urine Urobilinogen (Normal) mg/dL Ur Leukocyte Esterase (Negative) Urine Microscopic RBC (0-3) per hpf Urine Microscopic WBC (0-3) per hpf Ur Squamous Epith Cells (None-Few) per lpf Urine Bacteria (None-Few) per hpf Hyaline Casts (None-Few) per lpf Urine Yeast (None Seen) per hpf Ur Culture Indicated? (NO) 05/27/18 Range/Units 18:50 WBC (4.3-11.1) K/mcL RBC (4.19-5.50) M/mcL Hgb (12.9-16.9) g/dL Hct (37.5-50.1) % MCV (83.0-100.0) fL MCH (28.0-33.3) pg MCHC (31.6-35.5) g/dL RDW (11.5-14.5) % Plt Count (140-400) K/mcL MPV (9.4-12.4) fL Immature Gran % (0-4) % Seg Neutrophils % % Lymphocytes % % Monocytes % % Eosinophils % % Basophils % % Neutrophils # (1.6-8.9) K/mcL Lymphocytes # (0.6-4.6) K/mcL Monocytes # (0.0-1.3) K/mcL Eosinophils # (0.0-0.6) K/mcL Basophils # (0.0-0.2) K/mcL Nucleated RBCs/100 WBC (0) /100 WBC Reactive Lymphocytes (Not Present) Platelet Estimate (Normal) Immature Plt Fraction (1.1-6.1) % Sodium (136-145) mEq/L Potassium (3.5-5.1) mEq/L Chloride (98-107) mEq/L Carbon Dioxide (23-29) mEq/L BUN (6-20) mg/dL Creatinine (0.70-1.30) mg/dL Est GFR ( Amer) (> 60) Est GFR (Non-Af Amer) (> 60) BUN/Creatinine Ratio (6-26) Glucose (70-105) mg/dL Calculated Osmolality (280-300) Lactic Acid (0.5-2.2) mmol/L Calcium (8.6-10.3) mg/dL Total Bilirubin (0.3-1.0) mg/dL Direct Bilirubin (0.0-0.2) mg/dL Indirect Bilirubin (0.0-1.2) mg/dL AST (13-39) Units/L ALT (7-52) Units/L Alkaline Phosphatase (34-104) Units/L Serum Total Protein (6.4-8.9) g/dL Albumin (3.5-5.7) g/dL Globulin (2.4-3.5) g/dL Albumin/Globulin Ratio (1.1-2.2) Lipase (11-82) Units/L Urine Color Dark Yellow (Yellow) Urine Clarity Clear (Clear) Urine pH 6.0 (5.0-8.0) pH Units Ur Specific [place] > 1.030 H (1.010-1.025) Urine Protein 30 H (Neg-Trace) mg/dL Urine Glucose (UA) >=1000 H (Normal) mg/dL Urine Ketones 40 H (Negative) mg/dL Urine Blood Negative (Negative) Urine Nitrite Negative (Negative) Urine Bilirubin Large H (Negative) Urine Urobilinogen Normal (Normal) mg/dL Ur Leukocyte Esterase Negative (Negative) Urine Microscopic RBC 0-3 (0-3) per hpf Urine Microscopic WBC 30-50 H (0-3) per hpf Ur Squamous Epith Cells Few (None-Few) per lpf Urine Bacteria None Seen (None-Few) per hpf Hyaline Casts None Seen (None-Few) per lpf Urine Yeast Many H (None Seen) per hpf Ur Culture Indicated? NO (NO) - Radiology Data Radiology results reviewed: Yes I reviewed the patient's radiology results. Right upper quadrant ultrasound was interpreted as showing acalculous cholecystitis
[2018-05-27 19:03] LABS: Bilirubin,Urine Large (Negative); Blood,Urine Negative (Negative); Clarity,Urine Clear (Clear); Color,Urine Dark Yellow (Yellow); Glucose,Urine (UA) >=1000 mg/dL (Normal); Ketones,Urine 40 mg/dL (Negative); Leukocyte Esterase,Urine Negative (Negative); Nitrite,Urine Negative (Negative); Protein,Urine 30 mg/dL (Neg-Trace); Specific Gravity,Urine > 1.030 (1.010-1.025); Urobilinogen,Urine Normal (Normal)
[2018-05-27 19:06] LABS: Basophils % 0.2 %; Immature Platelets 10.9 % (1.1-6.1); Mean Platelet Volume 12.5 fL (9.4-12.4)
[2018-05-27 19:06] LABS: Bacteria,Urine None Seen per hpf (None-Few); Hyaline Casts,Urine None Seen per lpf (None-Few); RBC,Urine 0-3 per hpf (0-3); Squamous Epithelial Cell,Urine Few per lpf (None-Few); WBC,Urine 30-50 per hpf (0-3)
[2018-05-27 19:14] LABS: Eosinophils % 0.7 %; Hematocrit 37.6 % (37.5-50.1); Hemoglobin 13.3 g/dL (12.9-16.9); Immature Granulocytes % 0.2 % (0-4); Lymphocytes % 21.8 %; Mean Corpuscular HGB Conc 35.4 g/dL (31.6-35.5); Mean Corpuscular Volume 87.6 fL (83.0-100.0); Monocytes # 0.3 K/mcL (0.0-1.3); Monocytes % 6.9 %; Neutrophils # 3.2 K/mcL (1.6-8.9); Nucleated Red Blood Cells 0.4 /100 WBC (0); Red Blood Count 4.29 M/mcL (4.19-5.50); Red Cell Distribution Width 13.3 % (11.5-14.5); Segmented Neutrophils % 70.2 %
[2018-05-27 19:18] LABS: Yeast,Urine Many per hpf (None Seen)
[2018-05-27 19:30] LABS: Platelet Count 83 K/mcL (140-400)
[2018-05-27 19:31] LABS: Platelet Estimate Decreased (Normal); Reactive Lymphocytes Present (Not Present)
[2018-05-27 19:37] LABS: Alanine Aminotransferase > 500 Units/L (7-52); Albumin 2.7 g/dL (3.5-5.7); Albumin/Globulin Ratio 0.9 (1.1-2.2); Alkaline Phosphatase 363 Units/L (34-104); Aspartate Amino Transferase > 3000 Units/L (13-39); BUN/Creatinine Ratio 10 (6-26); Bilirubin,Direct 5.2 mg/dL (0.0-0.2); Bilirubin,Indirect 2.3 mg/dL (0.0-1.2); Bilirubin,Total 7.5 mg/dL (0.3-1.0); Blood Urea Nitrogen 11 mg/dL (6-20); Calcium 8.3 mg/dL (8.6-10.3); Carbon Dioxide 27 mEq/L (23-29); Chloride 97 mEq/L (98-107); Glucose 323 mg/dL (70-105); Lipase 21 Units/L (11-82); Osmolality,Calculated 280 (280-300); Potassium 3.9 mEq/L (3.5-5.1); Sodium 129 mEq/L (136-145); Total Protein 5.7 g/dL (6.4-8.9); eGFR For Non-African Americans > 60 (> 60)
[2018-05-27] MEDS ORDERED: *HR* FentaNYL (PF) 100 MCG/2 ML VIAL IVP ONE (19:57)
[2018-05-28] MEDS ORDERED: Naloxone 0.4 MG/ML INJ IVP PRN (02:29)
[2018-05-28] MEDS ORDERED: Dextrose Gel 15 GM/37.5 ML TUBE PO PRN ×2 (02:46)
[2018-05-28] MEDS ORDERED: D5% in Water 1,000 ML IVC PRN (02:46)
[2018-05-28] MEDS ORDERED: *HR* Dextrose 50 % in Water (Syg) 50 ML SYRINGE IVP PRN (02:46)
[2018-05-28] MEDS ORDERED: 0.9 % Sodium Chloride 1,000 ML IVC ONE (03:44)
[2018-05-28] MEDS: Insulin DETEMIR 100 UNIT/ML X5UNITS SQ SCH ×2 (04:37→21:23)
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
[2018-05-28 06:40] LABS: Red Cell Distribution Width 13.2 % (11.5-14.5)
[2018-05-28 06:42] LABS: Hematocrit 39.4 % (37.5-50.1); Hemoglobin 13.7 g/dL (12.9-16.9); Immature Platelets 11.4 % (1.1-6.1); Mean Corpuscular HGB Conc 34.8 g/dL (31.6-35.5); Mean Corpuscular Volume 89.1 fL (83.0-100.0); Mean Platelet Volume 12.8 fL (9.4-12.4); Red Blood Count 4.42 M/mcL (4.19-5.50)
[2018-05-28 06:56] LABS: BUN/Creatinine Ratio 19 (6-26); Blood Urea Nitrogen 12 mg/dL (6-20); Calcium 7.8 mg/dL (8.6-10.3); Carbon Dioxide 22 mEq/L (23-29); Chloride 101 mEq/L (98-107); Glucose 405 mg/dL (70-105); Osmolality,Calculated 275 (280-300); Potassium 3.7 mEq/L (3.5-5.1); Sodium 124 mEq/L (136-145); eGFR For Non-African Americans > 60 (> 60)
[2018-05-28] MEDS ORDERED: Insulin LISPRO 300 UNITS/3 ML VIAL SQ SCH ×2 (07:30→21:00)
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
[2018-05-28] MEDS: 0.9 % Sodium Chloride 1,000 ML IVC SCH ×2 (09:25→21:22)
[2018-05-28] MEDS: *HR* OxyCODONE Immed Rel 5 MG TABLET PO SCH ×2 (09:27→16:28)
[2018-05-28] MEDS: Gabapentin 300 MG CAPSULE PO SCH ×3 (09:28→21:23)
[2018-05-28] MEDS: Famotidine 20 MG TABLET PO SCH ×2 (09:28→21:22)
[2018-05-28] MEDS: tiZANidine 4 MG TABLET PO SCH ×2 (09:29→16:03)
[2018-05-28] MEDS: Lisinopril 20 MG TABLET PO SCH (09:29)
[2018-05-28] MEDS: Nicotine 21 MG PATCH.TD24 TD SCH (09:31)
[2018-05-28] MEDS: Insulin LISPRO 300 UNITS/3 ML VIAL SQ SCH ×4 (09:45→21:23)
[2018-05-28 09:56] LABS: Amphetamine Screen,Urine Negative ng/mL (Cutoff=1000); Barbiturate Screen,Urine Negative ng/mL (Cutoff=200); Benzodiazepines Screen,Urine Positive ng/mL (Cutoff=200); Cannabinoid Screen,Urine Negative ng/mL (Cutoff = 50); Cocaine Screen,Urine Negative ng/mL (Cutoff= 300); Opiate Screen,Urine Negative ng/mL (Cutoff=300); Phencyclidine Screen,Urine Negative ng/mL (Cutoff=25)
--- NOTE | 2018-05-28 11:35 | Internal Med Progress Note ---
Hospitalist Progress Note - Encounter Date of Encounter: 05/28/18 Time of Encounter: 11:35 - Subjective Interval History: 37-year-old male with history of chronic hepatitis C, former IV drug abuser with chronic pain, opiate dependence, depression suspected benzodiazepine abuse , presented with abdominal pain and transaminitis. Initial ultrasound and abdomen MRI showed acalculous cholecystitis however surgery reports it is unlikely, recommend GI evaluation. During evaluation, patient continues to complain about pain. OARSS shows patient is being tapered off opiates , on 5-325mg daily, patient is not on BZDPs But reports being on BZDPs and it is also present in his urine - Exam Vitals: Temp Pulse Resp BP Pulse Ox 98.6 F 74 16 118/81 98 05/28/18 10:36 05/28/18 10:36 05/28/18 10:36 05/28/18 10:36 05/28/18 10:36 Exam: Gen.: Young male, cachectic, Alert awake and oriented, not in any form of distress. HEENT: jaundiced Cardiac: RRR. No murmurs gallops or rubs Lungs: CTA bilaterally, no wheezes, rales or rhonchi, equal chest expansion Abdomen: Soft , mild RUQ tenderness. no rebound MSK: Normal inspection Extremities: No pedal edema Skin: jaundiced Back: Equivocal left CVA tenderness Neuro: A&Ox3, moves all extremities, no focal deficits Psych: Appropriate mood and behavior - Assessment and Plan (1) Hyperbilirubinemia Current Visit: Yes Status: Acute Assessment and Plan: Improving It is likely due to an acute insult on his baseline hepatitis C The patient is taking many prescription drugs including percocet, buspar, and benzodiazipines all meant to be used with caution in a patient with liver disease. RUQ USS and MRI noted for no biliary duct abnormalities nor liver masses Check Hep panel, including Hep A Hold offending medications Check INR No recent travels, denies IV drug abuse (2) Transaminitis Current Visit: Yes Status: Acute Assessment and Plan: as above (3) Anxiety and depression Current Visit: Yes Status: Chronic Assessment and Plan: continue home meds (4) Chronic back pain Current Visit: Yes Status: Chronic Assessment and Plan: continue home meds only (5) Diabetes mellitus Current Visit: Yes Status: Chronic Assessment and Plan: continue insulin, FS ACHS Uncontrolled Check A1C and lipid panel (6) Hepatitis C Current Visit: Yes Status: Chronic Assessment and Plan: Check PCR GI following (7) Tobacco abuse Current Visit: Yes Status: Chronic Assessment and Plan: encourage cessation - Time Spent with Patient Total time spent is greater than 50% in coordination of care (as documented) at patient's floor/unit and/or counseling patient: Plan of Care Discussed with: patient Internal Medicine: Result - Labs CBC & Chem 7: 05/28/18 06:03 05/28/18 06:03 Labs: Short CBC 05/28/18 Range/Units 06:03 WBC 5.1 (4.3-11.1) K/mcL Hgb 13.7 (12.9-16.9) g/dL Hct 39.4 (37.5-50.1) % Plt Count 84 L (140-400) K/mcL BMP 05/28/18 06:03 Sodium 124 L Potassium 3.7 Chloride 101 Carbon Dioxide 22 L BUN 12 Creatinine 0.62 L Glucose 405 H Calcium 7.8 L Consult Discharge Plan - Plan Referrals: NONE,PCP [Primary Care Provider] - Felix Chew [Family Provider] - (4) Chronic back pain Qualifiers: Back pain location: low back pain Back pain laterality: midline Sciatica presence: without sciatica Qualified Code(s): M54.5 - Low back pain; G89.29 - Other chronic pain (5) Diabetes mellitus Qualifiers: Diabetes mellitus type: type 2 Diabetes mellitus meterman insulin use: without meterman use Diabetes mellitus complication status: with hyperglycemia Qualified Code(s): E11.65 - Type 2 diabetes mellitus with hyperglycemia (6) Hepatitis C Qualifiers: Viral hepatitis chronicity: chronic Hepatic coma status: without hepatic coma Qualified Code(s): B18.2 - Chronic viral hepatitis C
[2018-05-28 12:19] LABS: Hepatitis B Surface Antigen Nonreactive (Nonreactive)
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
[2018-05-28 13:16] LABS: Acetaminophen < 10 mcg/mL (10-20); Alanine Aminotransferase > 500 Units/L (7-52); Albumin 2.6 g/dL (3.5-5.7); Albumin/Globulin Ratio 0.9 (1.1-2.2); Alkaline Phosphatase 346 Units/L (34-104); Aspartate Amino Transferase 2673 Units/L (13-39); Bilirubin,Direct 5.3 mg/dL (0.0-0.2); Bilirubin,Indirect 2.3 mg/dL (0.0-1.2); Bilirubin,Total 7.6 mg/dL (0.3-1.0); Globulin 2.9 g/dL (2.4-3.5); Total Protein 5.5 g/dL (6.4-8.9)
[2018-05-28 14:24] LABS: Hepatitis A Antibody IgM Reactive (Nonreactive)
[2018-05-28 14:28] LABS: Hepatitis C Virus Antibody Reactive (Nonreactive)
[2018-05-28 15:17] LABS: Prothrombin Time 11.2 Seconds (9.4-12.1)
[2018-05-28] MEDS ORDERED: Famotidine 20 MG/2 ML VIAL IVP ONE (15:39)
[2018-05-28] MEDS ORDERED: methylPREDNISolone 125 MG/2 ML VIAL IVP ONE (15:40)
--- NOTE | 2018-05-28 15:41 | Event Note ---
Date of Encounter: 05/28/18 Time of Encounter: 15:41 Attention drawn to patient by RN of diffuse rash and hives Patient seen and evaluated at the bedside he has no oral mucosa/lip/tongue swelling and is maintaining his airway. no stridor or wheezes he had earlier confirmed all his home meds this a.m, prior to resuming them, but he states now that "this has happened before and I have not had time to see the physician giving them to me" Of note, patient is also drug seeking as he continued to lie about prescription meds, and states he got his "xanax" from the time he was here 12/2017, (at that time, he was discharged on 7 days supply) He will be given Benadryl, Solumedrol and Famotidine IV for hives All psych meds held, he will be monitored closely Continue current meds
[2018-05-28 16:01] LABS: Hepatitis B Core IgM Grayzone (Nonreactive)
[2018-05-28] MEDS ORDERED: Insulin DETEMIR 100 UNIT/ML X5UNITS SQ SCH (21:00)
[2018-05-29 05:28] LABS: Aspartate Amino Transferase 1111 Units/L (13-39)
[2018-05-29 05:30] LABS: Alanine Aminotransferase > 500 Units/L (7-52); Albumin 2.4 g/dL (3.5-5.7); Albumin/Globulin Ratio 0.8 (1.1-2.2); Alkaline Phosphatase 300 Units/L (34-104); BUN/Creatinine Ratio 13 (6-26); Bilirubin,Total 6.1 mg/dL (0.3-1.0); Blood Urea Nitrogen 9 mg/dL (6-20); Calcium 8.1 mg/dL (8.6-10.3); Carbon Dioxide 23 mEq/L (23-29); Chloride 102 mEq/L (98-107); Chol/HDL Ratio 50.4 (0-4.9); Cholesterol 403 mg/dL (< 200); Glucose 267 mg/dL (70-105); HDL Cholesterol 8 mg/dL (40-59); LDL Cholesterol,Calculated 339 mg/dL (0-99); Osmolality,Calculated 280 (280-300); Potassium 4.4 mEq/L (3.5-5.1); Sodium 131 mEq/L (136-145); Total Protein 5.4 g/dL (6.4-8.9); Triglycerides 281 mg/dL (< 150); eGFR For Non-African Americans > 60 (> 60)
[2018-05-29 05:57] LABS: Basophils % 0.3 %; Eosinophils % 0.2 %; Hematocrit 36.9 % (37.5-50.1); Immature Granulocytes % 0.3 % (0-4); Lymphocytes # 2.1 K/mcL (0.6-4.6); Lymphocytes % 32.9 %; Mean Corpuscular HGB Conc 35.2 g/dL (31.6-35.5); Mean Corpuscular Hemoglobin 30.8 pg (28.0-33.3); Mean Corpuscular Volume 87.4 fL (83.0-100.0); Mean Platelet Volume 12.2 fL (9.4-12.4); Monocytes # 0.3 K/mcL (0.0-1.3); Monocytes % 4.7 %; Neutrophils # 3.9 K/mcL (1.6-8.9); Red Blood Count 4.22 M/mcL (4.19-5.50); Red Cell Distribution Width 13.3 % (11.5-14.5); Segmented Neutrophils % 61.6 %
[2018-05-29 05:58] LABS: Platelet Count 96 K/mcL (140-400)
[2018-05-29 06:23] LABS: Platelet Estimate Decreased (Normal)
[2018-05-29 06:24] LABS: Toxic Granulation Present (Not Present)
[2018-05-29] MEDS: 0.9 % Sodium Chloride 1,000 ML IVC SCH ×2 (07:26→18:39)
[2018-05-29] MEDS: Insulin LISPRO 300 UNITS/3 ML VIAL SQ SCH ×6 (08:28→21:08)
[2018-05-29] MEDS: Lisinopril 20 MG TABLET PO SCH (08:29)
[2018-05-29] MEDS: *HR* OxyCODONE Immed Rel 5 MG TABLET PO SCH ×2 (08:29→16:47)
[2018-05-29] MEDS: Nicotine 21 MG PATCH.TD24 TD SCH ×3 (08:30→17:09)
[2018-05-29] MEDS: Gabapentin 300 MG CAPSULE PO SCH ×3 (08:30→21:06)
[2018-05-29] MEDS: Famotidine 20 MG TABLET PO SCH ×2 (08:31→21:06)
[2018-05-29] MEDS: Insulin DETEMIR 100 UNIT/ML X5UNITS SQ SCH ×2 (08:36→21:07)
[2018-05-29 08:52] LABS: Hemoglobin A1C > 18.7 %
--- NOTE | 2018-05-29 10:58 | Internal Med Progress Note ---
Hospitalist Progress Note - Encounter Date of Encounter: 05/29/18 Time of Encounter: 10:58 - Subjective Interval History: 37-year-old male with history of chronic hepatitis C, former IV drug abuser with chronic pain, opiate dependence, depression suspected benzodiazepine abuse , presented with abdominal pain and transaminitis. Initial ultrasound and abdomen MRI showed acalculous cholecystitis however surgery reports it is unlikely, recommend GI evaluation. OARSS shows patient is being tapered off opiates , on 5-325mg daily, patient is not on BZDPs But reports being on BZDPs and it is also present in his urine, possibly purchasing illegally had an adverse reaction to one of the psych meds , all 3 discontinued The patient has been ambulatory He denies any new complaints. His skin rash and wheals have resolved Transaminitis is improving Fingerstick remained uncontrolled with increases insulin. A1c greater than 18 The patient evidence of elevated LDL and HDL on lipid profile We will continue supportive care today and likely discharge a.m if he continues to improve - Exam Vitals: Temp Pulse Resp BP Pulse Ox 97.3 F L 77 14 118/69 100 05/29/18 10:47 05/29/18 10:47 05/29/18 10:47 05/29/18 10:47 05/29/18 10:47 Exam: Gen.: Young male, cachectic, Alert awake and oriented, not in any form of distress. HEENT: jaundiced Cardiac: RRR. No murmurs gallops or rubs Lungs: CTA bilaterally, no wheezes, rales or rhonchi, equal chest expansion Abdomen: Soft , mild RUQ tenderness. no rebound MSK: Normal inspection Extremities: No pedal edema Skin: jaundiced Back: Equivocal left CVA tenderness Neuro: A&Ox3, moves all extremities, no focal deficits Psych: Appropriate mood and behavior - Assessment and Plan (1) Hyperbilirubinemia Current Visit: Yes Status: Acute Assessment and Plan: Improving It is likely due to an acute insult on his baseline hepatitis C Associated acute Hep A The patient is taking many prescription drugs including percocet, buspar, and benzodiazipines all meant to be used with caution in a patient with liver disease. RUQ USS and MRI noted for no biliary duct abnormalities nor liver masses INR WNL No recent travels, denies IV drug abuse (2) Transaminitis Current Visit: Yes Status: Acute Assessment and Plan: as above (3) Anxiety and depression Current Visit: Yes Status: Chronic Assessment and Plan: continue seroquel Discontinue Buspar and Lexapro (4) Chronic back pain Current Visit: Yes Status: Chronic Assessment and Plan: continue home meds only (5) Diabetes mellitus Current Visit: Yes Status: Chronic Assessment and Plan: continue insulin, FS ACHS Uncontrolled Increase insulin levemir, add prandial insulin A1C >18 Lipid panel with lizabeth vated Ayesha, LDL and HDL Cannot start statin due to transaminitis Encouraged dietary modification and control (6) Hepatitis C Current Visit: Yes Status: Chronic Assessment and Plan: Check PCR GI following (7) Tobacco abuse Current Visit: Yes Status: Chronic Assessment and Plan: encourage cessation (8) Allergic reaction caused by a drug Current Visit: Yes Status: Resolved Assessment and Plan: On 05/28 reacted to buspar and or lexapro Resolved with famotidine,benadryl and steroids Documented in patient's chart (9) Hepatitis A Current Visit: Yes Status: Acute Assessment and Plan: continue to monitor liver enzymes (10) Hyperlipidemia Current Visit: Yes Status: Chronic Assessment and Plan: dietary modification Unable to start statins due to severe transaminitis - Time Spent with Patient Total time spent is greater than 50% in coordination of care (as documented) at patient's floor/unit and/or counseling patient: Plan of Care Discussed with: patient Internal Medicine: Result - Labs CBC & Chem 7: 05/29/18 05:42 05/29/18 04:18 Labs: Short CBC 05/29/18 Range/Units 05:42 WBC 6.4 (4.3-11.1) K/mcL Hgb 13.0 (12.9-16.9) g/dL Hct 36.9 L (37.5-50.1) % Plt Count 96 L (140-400) K/mcL Neutrophils # 3.9 (1.6-8.9) K/mcL BMP 05/29/18 04:18 Sodium 131 L Potassium 4.4 Chloride 102 Carbon Dioxide 23 BUN 9 Creatinine 0.68 L Glucose 267 H Calcium 8.1 L Liver Function 05/28/18 05/29/18 Range/Units 10:05 04:18 Total Bilirubin 7.6 H 6.1 H (0.3-1.0) mg/dL Direct Bilirubin 5.3 H (0.0-0.2) mg/dL AST 2673 H 1111 H (13-39) Units/L ALT > 500 H > 500 H (7-52) Units/L Alkaline Phosphatase 346 H 300 H (34-104) Units/L Albumin 2.6 L 2.4 L (3.5-5.7) g/dL - ABG Interpretation ABG results: PT/INR, D-dimer PT 11.2 Seconds (9.4-12.1) 05/28/18 14:52 Consult Discharge Plan - Plan Referrals: NONE,PCP [Primary Care Provider] - Nicol ChewConversio [Family Provider] - (4) Chronic back pain Qualifiers: Back pain location: low back pain Back pain laterality: midline Sciatica presence: without sciatica Qualified Code(s): M54.5 - Low back pain; G89.29 - Other chronic pain (5) Diabetes mellitus Qualifiers: Diabetes mellitus type: type 2 Diabetes mellitus termination clerk insulin use: without termination clerk use Diabetes mellitus complication status: with hyperglycemia Qualified Code(s): E11.65 - Type 2 diabetes mellitus with hyperglycemia (6) Hepatitis C Qualifiers: Viral hepatitis chronicity: chronic Hepatic coma status: without hepatic coma Qualified Code(s): B18.2 - Chronic viral hepatitis C (8) Allergic reaction caused by a drug Qualifiers: Encounter type: initial encounter Qualified Code(s): T78.40XA - Allergy, unspecified, initial encounter (9) Hepatitis A Qualifiers: Hepatic coma status: without hepatic coma Qualified Code(s): B15.9 - Hepatitis A without hepatic coma (10) Hyperlipidemia Qualifiers: Hyperlipidemia type: unspecified Qualified Code(s): E78.5 - Hyperlipidemia, unspecified
[2018-05-29] MEDS ORDERED: *HR* LORazepam 2 MG/ML VIAL IVP ONE (20:32)
[2018-05-29] MEDS ORDERED: traMADol 50 MG TABLET PO ONE (20:45)
[2018-05-30] MEDS: 0.9 % Sodium Chloride 1,000 ML IVC SCH (03:52)
--- NOTE | 2018-05-30 06:46 | Event Note ---
Date of Encounter: 05/30/18 Time of Encounter: 06:45 patient seen and examined; admission complaint likely related to hepatic origin with gallbladder having a reactive inflammation; general surgery will sign off;
[2018-05-30 07:10] LABS: Alanine Aminotransferase > 500 Units/L (7-52); Albumin 2.6 g/dL (3.5-5.7); Albumin/Globulin Ratio 0.8 (1.1-2.2); Alkaline Phosphatase 300 Units/L (34-104); Aspartate Amino Transferase 611 Units/L (13-39); BUN/Creatinine Ratio 20 (6-26); Bilirubin,Total 5.5 mg/dL (0.3-1.0); Blood Urea Nitrogen 10 mg/dL (6-20); Calcium 8.4 mg/dL (8.6-10.3); Carbon Dioxide 21 mEq/L (23-29); Chloride 97 mEq/L (98-107); Globulin 3.4 g/dL (2.4-3.5); Glucose 372 mg/dL (70-105); Osmolality,Calculated 278 (280-300); Sodium 127 mEq/L (136-145); eGFR For Non-African Americans > 60 (> 60)
[2018-05-30] MEDS: Famotidine 20 MG TABLET PO SCH (08:47)
[2018-05-30] MEDS: *HR* OxyCODONE Immed Rel 5 MG TABLET PO SCH (08:47)
[2018-05-30] MEDS: Lisinopril 20 MG TABLET PO SCH (08:47)
[2018-05-30] MEDS: Gabapentin 300 MG CAPSULE PO SCH (08:47)
[2018-05-30] MEDS: Nicotine 21 MG PATCH.TD24 TD SCH (08:48)
[2018-05-30] MEDS: Insulin LISPRO 300 UNITS/3 ML VIAL SQ SCH ×3 (08:49→12:15)
[2018-05-30] MEDS: Insulin DETEMIR 100 UNIT/ML X5UNITS SQ SCH (09:21)
[2018-05-30] MEDS ORDERED: Insulin DETEMIR 100 UNIT/ML X5UNITS SQ ONE (10:43)
--- NOTE | 2018-05-30 11:01 | Discharge Summary ---
- NOTES TO OUTPATIENT PROVIDER Notes to Outpatient Provider: 37-year-old male with uncontrolled diabetes mellitus complicated by proteinuria, hyperlipidemia which is uncontrolled, chronic hepatitis C, former IV drug abuse of chronic pain, opiate dependence, depression drug-seeking behavior and benzodiazepine abuse presented with abdominal pain in the right upper quadrant region. Workup showed transaminitis and hyperbilirubinemia without any gallstones. Biliary duct is unremarkable on abdominal MRI. Patient also noted to have acute hepatitis A with positive IgM antibodies. Was managed conservatively with IV fluid and avoidance of hepatotoxic medications. Patient's A1c was 18, he reported noncompliance with insulin and diet. His workup also shows severe hyperlipidemia, however patient is unable to receive statins or fibrates. He is discharged home with prescription for insulin glargine, lispro, lancets, or meter, strips, insulin he does, and his pain medications. Of note, patient had hives with use of buspar and lexapro which we on his home medication list, this has been discontinued. The patient also had benzodiazepine in his urine without any medical prescription for it. Follow-up with PCP, established care with pain physician when referred by PCP. Plan of care discussed, verbalized understanding Date of Encounter: 05/30/18 Time of Encounter: 11:42 - Discharge Diagnosis (1) Hyperbilirubinemia Priority: Primary Status: Acute (2) Transaminitis Priority: Primary Status: Acute (3) Anxiety and depression Priority: Secondary Status: Chronic (4) Chronic back pain Priority: Secondary Status: Chronic Qualifiers: Back pain location: low back pain Back pain laterality: midline Sciatica presence: without sciatica Qualified Code(s): M54.5 - Low back pain; G89.29 - Other chronic pain (5) Diabetes mellitus Priority: Secondary Status: Chronic Qualifiers: Diabetes mellitus type: type 2 Diabetes mellitus jail insulin use: with jail use Diabetes mellitus complication status: with hyperglycemia Qualified Code(s): E11.65 - Type 2 diabetes mellitus with hyperglycemia; Z79.4 - USP (current) use of insulin (6) Hepatitis C Priority: Secondary Status: Chronic Qualifiers: Viral hepatitis chronicity: chronic Hepatic coma status: without hepatic coma Qualified Code(s): B18.2 - Chronic viral hepatitis C (7) Tobacco abuse Priority: Secondary Status: Chronic (8) Allergic reaction caused by a drug Priority: Primary Status: Resolved Qualifiers: Encounter type: initial encounter Qualified Code(s): T78.40XA - Allergy, unspecified, initial encounter (9) Hepatitis A Priority: Primary Status: Acute Qualifiers: Hepatic coma status: without hepatic coma Qualified Code(s): B15.9 - Hepatitis A without hepatic coma (10) Hyperlipidemia Priority: Secondary Status: Chronic Qualifiers: Hyperlipidemia type: unspecified Qualified Code(s): E78.5 - Hyperlipidemia , unspecified Hospital course: 37-year-old male with uncontrolled diabetes mellitus complicated by proteinuria , hyperlipidemia which is uncontrolled, chronic hepatitis C, former IV drug abuse of chronic pain, opiate dependence, depression drug-seeking behavior and benzodiazepine abuse presented with abdominal pain in the right upper quadrant region. Workup showed transaminitis and hyperbilirubinemia without any gallstones. Biliary duct is unremarkable on abdominal MRI. Patient also noted to have acute hepatitis A with positive IgM antibodies. Was managed conservatively with IV fluid and avoidance of hepatotoxic medications. Patient's A1c was 18, he reported noncompliance with insulin and diet. His workup also shows severe hyperlipidemia, however patient is unable to receive statins or fibrates. He is discharged home with prescription for insulin glargine, lispro, lancets, or meter, strips, insulin he does, and his pain medications. Of note, patient had hives with use of buspar and lexapro which we on his home medication list, this has been discontinued. The patient also had benzodiazepine in his urine without any medical prescription for it. Follow-up with PCP, established care with pain physician when referred by PCP. Plan of care discussed, verbalized understanding Discharge discussed with: patient, nurse Time spent discussing smoking cessation with patient: 3 to 10 minutes - Time Spent with Patient Total time spent providing and/or coordinating discharge services: Greater than 30 minutes - Discharge Medications Prescriptions: Blood Sugar Diagnostic [Glucose Test Strip] 1 each QID #160 strip Blood-Glucose Meter [Accu-Chek Jessica Connect] 1 each QID #1 kit Insulin Glargine [Lantus] 12 unit SQ BID #2 vial Insulin LISPRO [HumaLOG] 8 units SQ TIDWM #2 vial Lancets [Blood Lancets] 1 each QID #160 each Lisinopril [Zestril] 20 mg PO DAILY 30 Days #30 tablet OxyCODONE Immed Rel [Roxicodone 5 MG] 5 mg PO BID 7 Days #14 tablet Syrge-Ndl,Ins 0.3 ml Half Gary [Insulin Syringe] 1 each QID #160 disp.syrin Home Medications: Famotidine [Pepcid] 20 mg PO BID 05/27/18 [History] Gabapentin [Neurontin] 300 mg PO TID 05/27/18 [History] Quetiapine Fumarate [Seroquel] 50 mg PO HS 05/27/18 [History] Tizanidine HCl 4 mg PO TID 05/27/18 [History] Blood Sugar Diagnostic [Glucose Test Strip] 1 each QID #160 strip 05/30/18 [ Rx] Blood-Glucose Meter [Accu-Chek Jessica Connect] 1 each QID #1 kit 05/30/18 [Rx] Insulin Glargine [Lantus] 12 unit SQ BID #2 vial 05/30/18 [Rx] Insulin LISPRO [HumaLOG] 8 units SQ TIDWM #2 vial 05/30/18 [Rx] Lancets [Blood Lancets] 1 each QID #160 each 05/30/18 [Rx] Lisinopril [Zestril] 20 mg PO DAILY 30 Days #30 tablet 05/30/18 [Rx] Nicotine Patch [Nicoderm] 21 mg TD DAILY patch.td24 05/30/18 [Rx] OxyCODONE Immed Rel [Roxicodone 5 MG] 5 mg PO BID 7 Days #14 tablet 05/30/18 [Rx ] Syrge-Ndl,Ins 0.3 ml Half Gary [Insulin Syringe] 1 each QID #160 disp.syrin 05/30/18 [Rx] Allergies/Adverse Reactions: 3 Allergy/AdvReac Type Severity Reaction Status Date / Time Buspirone Allergy Hives Verified 05/29/18 13:28 escitalopram [From Lexapro] Allergy Hives Verified 05/29/18 13:28 Penicillins Allergy Difficulty Verified 12/26/17 12:51 Breathing Date of admission: 05/28/18 00:56 Primary care physician: PCP NONE Consults: 05/28/18 08:01 Consult to Gastroenterology [CONS] Routine Consulting Provider: Gastroenterology Amanda Reason for Consult: Elevated bilirubin, transaminitis. History of Hep C Call Completed: No Discharging clinician: Jose Galindo Anticipated date of discharge: 05/30/18 - Constitutional Vitals: Temp Pulse Resp BP Pulse Ox 97.8 F 77 16 132/89 99 05/30/18 06:37 05/30/18 06:37 05/30/18 06:37 05/30/18 06:37 05/30/18 06:37 Gen.: Young male, cachectic, Alert awake and oriented, not in any form of distress. HEENT: jaundiced Cardiac: RRR. No murmurs gallops or rubs Lungs: CTA bilaterally, no wheezes, rales or rhonchi, equal chest expansion Abdomen: Soft , no tenderness. no rebound MSK: Normal inspection Extremities: No pedal edema Skin: jaundiced Back: No left CVA tenderness Neuro: A&Ox3, moves all extremities, no focal deficits Psych: Appropriate mood and behavior General appearance: Present: cooperative, A&O X 3, pleasant, no acute distress, answers questions appropriately - Patient Status Disposition: Home, Self-Care Condition: Good Functional capacity at discharge: independent ambulation Overall status at discharge: patient is progressing back to baseline - Discharge Instructions Follow Up With: Vinecnt Liz [Resident] - 06/10/18 2:00 pm (You will receive a new patient packet in the mail, please fill out and bring with you. You will need to bring a photo ID, insurance card, and any medications you are on. If you need to cancel, please give a 24 hour notice. Thank you) - Diet and Activity Activity: resume usual activities as tolerated Diet: diabetic diet, low fat, low cholesterol - VTE Documentation of Mechanical Device: Intermittent pneumatic compression device
[2018-05-30 11:20] VITALS: BP 123/84
[2018-05-30] MEDS ORDERED: Insulin LISPRO 300 UNITS/3 ML VIAL SQ SCH (12:00)
== END 2018-05-30 12:43 | disposition home or self-care (01) ==
LOC: EMEROOARM 17:46 → 3ANU 17:46 → SUATTDRO 05-28 00:56 → 3ANU 05-28 01:06
PROVIDERS: ADMIT Family Medicine; ATTEND Internal Medicine

== ENCOUNTER 2018-08-03 19:27 | Inpatient (IN) ==
[2018-08-03] MEDS ORDERED: *HR* Dextrose 50 % in Water (Syg) 50 ML SYRINGE IVP PRN ×2 (19:34→23:44)
[2018-08-03] MEDS ORDERED: 0.9 % Sodium Chloride 1,000 ML ONE (19:43)
[2018-08-03 20:56] LABS: Basophils % 0.3 %; Eosinophils # 0.1 K/mcL (0.0-0.6); Eosinophils % 1.5 %; Hemoglobin 14.2 g/dL (12.9-16.9); Immature Granulocytes % 0.1 % (0-4); Lymphocytes # 2.3 K/mcL (0.6-4.6); Lymphocytes % 25.3 %; Mean Corpuscular Hemoglobin 31.8 pg (28.0-33.3); Mean Corpuscular Volume 96.2 fL (83.0-100.0); Mean Platelet Volume 10.4 fL (9.4-12.4); Monocytes # 0.4 K/mcL (0.0-1.3); Monocytes % 4.3 %; Neutrophils # 6.2 K/mcL (1.6-8.9); Platelet Count 193 K/mcL (140-400); Red Blood Count 4.47 M/mcL (4.19-5.50); Red Cell Distribution Width 12.4 % (11.5-14.5); Segmented Neutrophils % 68.5 %
[2018-08-03 21:17] LABS: Troponin I < 0.03 ng/mL (< 0.04)
[2018-08-03 21:20] LABS: VBG HCO3 25 mEq/L (21-27); VBG PCO2 36 mmHg (41-51); VBG PH 7.45 pH Units (7.32-7.42); VBG PO2 205 mmHg (25-50)
[2018-08-03 21:36] LABS: Acetaminophen < 10 mcg/mL (10-20); Alanine Aminotransferase 132 Units/L (7-52); Albumin 3.6 g/dL (3.5-5.7); Albumin/Globulin Ratio 0.9 (1.1-2.2); Alkaline Phosphatase 172 Units/L (34-104); Aspartate Amino Transferase 102 Units/L (13-39); BUN/Creatinine Ratio 19 (6-26); Bilirubin,Total 0.5 mg/dL (0.3-1.0); Blood Urea Nitrogen 20 mg/dL (6-20); Calcium 9.1 mg/dL (8.6-10.3); Carbon Dioxide 24 mEq/L (23-29); Chloride 85 mEq/L (98-107); Ethanol < 10 mg/dL (Less than 10); Globulin 3.8 g/dL (2.4-3.5); Glucose 1037 mg/dL (70-105); Magnesium 1.9 mg/dL (1.6-2.6); Osmolality,Calculated 301 (280-300); Phosphorous 4.2 mg/dL (2.7-4.5); Potassium 4.9 mEq/L (3.5-5.1); Salicylate < 2.5 mg/dL (15.0-30.0); Sodium 118 mEq/L (136-145); Total Protein 7.4 g/dL (6.4-8.9); eGFR For Non-African Americans > 60 (> 60)
[2018-08-03] MEDS ORDERED: 0.9 % Sodium Chloride 1,000 ML IVC ONE (21:36)
--- NOTE | 2018-08-03 21:54 | Emergency Department Note ---
Disposition Clinical Impression: Hyperglycemia, Hyperglycemic hyperosmolar nonketotic coma Disposition: Admitted As Inpatient Condition: Serious Time of Disposition: 22:01 Altered Mental Status HPI - General Chief Complaint: ED Altered Mental Status Stated Complaint: "Hyperglycemia/Infection on Face" Time Seen by Provider: 08/03/18 19:29 Source: patient Limitations: no limitations Nursing Notes Reviewed: Yes Vital Signs Reviewed: Yes - History of Present Illness HPI Narrative: Patient presents to the ED with the chief complaint of altered mental status and hyperglycemia. Patient states that he has a history of diabetes. Was just in the hospital for similar symptoms. States that he was discharged and was supposed to get a glucometer, but his insurance would not pay for it. He also has not been using his insulin. States that he can tell when his blood sugar will get low. Physical started feeling very weak and tired, so he will eat something sugary. States he just felt really rundown and tired over the past couple of days. Also developed an abscess on his face. He states has been there about a week. States it was draining, but is no longer. Nose any fever. Has had some chills. Denies any chest pain or shortness of breath. Denies any abdominal pain. Has had some nausea but no vomiting. - Related Data Home Medications Medication Instructions Recorded Confirmed Famotidine [Pepcid] 20 mg PO BID 05/27/18 05/27/18 Gabapentin [Neurontin] 300 mg PO TID 05/27/18 05/27/18 Quetiapine Fumarate [Seroquel] 50 mg PO HS 05/27/18 05/27/18 Tizanidine HCl 4 mg PO TID 05/27/18 05/27/18 Previous Rx's Medication Instructions Recorded Blood Sugar Diagnostic [Glucose 1 each QID #160 strip 05/30/18 Test Strip] Blood-Glucose Meter [Accu-Chek 1 each QID #1 kit 05/30/18 Jessica Connect] Insulin Glargine [Lantus] 12 unit SQ BID #2 vial 05/30/18 Insulin LISPRO [HumaLOG] 8 units SQ TIDWM #2 vial 05/30/18 Lancets [Blood Lancets] 1 each QID #160 each 05/30/18 Lisinopril [Zestril] 20 mg PO DAILY 30 Days #30 tablet 05/30/18 Nicotine Patch [Nicoderm] 21 mg TD DAILY patch.td24 05/30/18 OxyCODONE Immed Rel [Roxicodone 5 5 mg PO BID 7 Days #14 tablet 05/30/18 MG] Syrge-Ndl,Ins 0.3 ml Half Gary 1 each QID #160 disp.syrin 05/30/18 [Insulin Syringe] Allergies Allergy/AdvReac Type Severity Reaction Status Date / Time Buspirone Allergy Hives Verified 05/29/18 13:28 escitalopram [From Lexapro] Allergy Hives Verified 05/29/18 13:28 Penicillins Allergy Difficulty Verified 12/26/17 12:51 Breathing Review of Systems: As reviewed in the HPI. All other systems reviewed are negative or normal. Past Medical History - Past Medical History Attestation: Yes The following information was validated with the patient. Source: patient Medical history: Reports: diabetes, hepatitis, other Surgical history: Reports: no surgical history Psychiatric history: Reports: anxiety - Social History Smoking Status: Current every day smoker Smokeless Tobacco Status: No Alcohol use: Reports: none Drug use: Reports: none Physical Exam CONSTITUTIONAL: [Chronically ill appearing, alert and in no acute distress] EYES: [EOMI, clear conjunctiva, PERRLA] HENT: [Abscess to the left maxillary region with no fluctuance or drainage, minimal surrounding cellulitis. Several ulcerated lesions medially, atraumatic, dry, cracked mucus membranes, normal oropharynx] NECK: [normal inspection, full ROM, trachea midline, no obvious swelling] PULMONARY: [normal lung sounds bilaterally, normal chest rise and fall, no respiratory distress or stridor, no wheezes, no rales, no rhonchi CARDIOVASCULAR: [regular rate, regular rhythm, normal heart sounds, no murmurs, distal extremities are warm and well perfused] GASTROINSTESTINAL: [soft, non-tender, non-rigid, non-distended, no guarding, no rebound, normal bowel sounds] GENITOURINARY/RECTAL: [deferred] NEUROLOGIC: [Alert, oriented x3, normal speech, moves all extremities] EXTREMITIES: [Normal inspection, full ROM, no tenderness, no pedal edema, normal capillary refill] MUSCULOSKELETAL: [no gross deformities, atraumatic] SKIN: [No cyanosis, no diaphoresis, normal color, warm, no rash, abscess as described above] PSYCHIATRIC: [normal mood and affect] - General Limitations: no limitations General appearance: lethargic, in distress Course Course Narrative: Patient presenting with possible DKA. He is alert and oriented now. We will workup and admit. - Reevaluation(s) Reevaluation #1: Patient has been becoming more somnolent. He is arousable but is quite sleepy. Labs are starting to come back and is very hyperglycemic. His lactic acid is normal. Suspecting this is a hyperosmolar hyperglycemic nonketotic state. We will await his potassium and start him on insulin drip. The serum sodium is 118, but corrected for his glucose is 133. Reevaluation #2: Patient continuing to be altered. We will send down for head CT. Head CT is unremarkable Vital Signs Temperature 96.1 F L 08/03/18 19:34 Pulse Rate 81 08/03/18 19:34 Respiratory Rate 16 08/03/18 19:34 Blood Pressure 117/84 08/03/18 19:34 O2 Sat by Pulse Oximetry 99 08/03/18 19:34 Temperature 96.1 F L 08/03/18 20:42 Pulse Rate 65 08/03/18 22:37 Respiratory Rate 16 08/03/18 22:37 Blood Pressure 125/99 08/03/18 22:37 O2 Sat by Pulse Oximetry 100 08/03/18 22:37 Oxygen Delivery Oxygen Delivery Room Air Altered Mental Status - Lab Data Result diagrams: 08/03/18 20:42 08/03/18 20:42 Lab Results 08/03/18 08/03/18 08/03/18 Range/Units 20:42 20:42 20:42 WBC 9.0 (4.3-11.1) K/mcL RBC 4.47 (4.19-5.50) M/mcL Hgb 14.2 (12.9-16.9) g/dL Hct 43.0 (37.5-50.1) % MCV 96.2 (83.0-100.0) fL MCH 31.8 (28.0-33.3) pg MCHC 33.0 (31.6-35.5) g/dL RDW 12.4 (11.5-14.5) % Plt Count 193 (140-400) K/mcL MPV 10.4 (9.4-12.4) fL Immature Gran % 0.1 (0-4) % Seg Neutrophils % 68.5 % Lymphocytes % 25.3 % Monocytes % 4.3 % Eosinophils % 1.5 % Basophils % 0.3 % Neutrophils # 6.2 (1.6-8.9) K/mcL Lymphocytes # 2.3 (0.6-4.6) K/mcL Monocytes # 0.4 (0.0-1.3) K/mcL Eosinophils # 0.1 (0.0-0.6) K/mcL Basophils # 0.0 (0.0-0.2) K/mcL VBG pH (7.32-7.42) pH Units VBG pCO2 (41-51) mmHg VBG pO2 (25-50) mmHg VBG HCO3 (21-27) mEq/L Carboxyhemoglobin (0-5) % Sodium 118 L* (136-145) mEq/L Potassium 4.9 (3.5-5.1) mEq/L Chloride 85 L (98-107) mEq/L Carbon Dioxide 24 (23-29) mEq/L BUN 20 (6-20) mg/dL Creatinine 1.03 (0.70-1.30) mg/dL Est GFR ( Amer) > 60 (> 60) Est GFR (Non-Af Amer) > 60 (> 60) BUN/Creatinine Ratio 19 (6-26) Glucose 1037 H* (70-105) mg/dL Calculated Osmolality 301 H (280-300) Lactic Acid 1.0 (0.5-2.2) mmol/L Calcium 9.1 (8.6-10.3) mg/dL Phosphorus 4.2 (2.7-4.5) mg/dL Magnesium 1.9 (1.6-2.6) mg/dL Total Bilirubin 0.5 (0.3-1.0) mg/dL AST 102 H (13-39) Units/L ALT 132 H (7-52) Units/L Alkaline Phosphatase 172 H (34-104) Units/L Troponin I < 0.03 (< 0.04) ng/mL Serum Total Protein 7.4 (6.4-8.9) g/dL Albumin 3.6 (3.5-5.7) g/dL Globulin 3.8 H (2.4-3.5) g/dL Albumin/Globulin Ratio 0.9 L (1.1-2.2) Salicylates < 2.5 L (15.0-30.0) mg/dL Acetaminophen < 10 L (10-20) mcg/mL Ethyl Alcohol < 10 (Less than 10) mg/dL 08/03/18 08/03/18 Range/Units 20:42 21:18 WBC (4.3-11.1) K/mcL RBC (4.19-5.50) M/mcL Hgb (12.9-16.9) g/dL Hct (37.5-50.1) % MCV (83.0-100.0) fL MCH (28.0-33.3) pg MCHC (31.6-35.5) g/dL RDW (11.5-14.5) % Plt Count (140-400) K/mcL MPV (9.4-12.4) fL Immature Gran % (0-4) % Seg Neutrophils % % Lymphocytes % % Monocytes % % Eosinophils % % Basophils % % Neutrophils # (1.6-8.9) K/mcL Lymphocytes # (0.6-4.6) K/mcL Monocytes # (0.0-1.3) K/mcL Eosinophils # (0.0-0.6) K/mcL Basophils # (0.0-0.2) K/mcL VBG pH 7.45 H (7.32-7.42) pH Units VBG pCO2 36 L (41-51) mmHg VBG pO2 205 H (25-50) mmHg VBG HCO3 25 (21-27) mEq/L Carboxyhemoglobin 8.6 H (0-5) % Sodium (136-145) mEq/L Potassium (3.5-5.1) mEq/L Chloride (98-107) mEq/L Carbon Dioxide (23-29) mEq/L BUN (6-20) mg/dL Creatinine (0.70-1.30) mg/dL Est GFR ( Amer) (> 60) Est GFR (Non-Af Amer) (> 60) BUN/Creatinine Ratio (6-26) Glucose (70-105) mg/dL Calculated Osmolality (280-300) Lactic Acid (0.5-2.2) mmol/L Calcium (8.6-10.3) mg/dL Phosphorus (2.7-4.5) mg/dL Magnesium (1.6-2.6) mg/dL Total Bilirubin (0.3-1.0) mg/dL AST (13-39) Units/L ALT (7-52) Units/L Alkaline Phosphatase (34-104) Units/L Troponin I (< 0.04) ng/mL Serum Total Protein (6.4-8.9) g/dL Albumin (3.5-5.7) g/dL Globulin (2.4-3.5) g/dL Albumin/Globulin Ratio (1.1-2.2) Salicylates (15.0-30.0) mg/dL Acetaminophen (10-20) mcg/mL Ethyl Alcohol (Less than 10) mg/dL TPA Checklist - LKW: 3-4.5 hrs Add. Warnings/Precautions Patient/family understanding: The patient/family members have been counseled and understood the risk, benefit, and alternatives of treatment. Critical Care Time Critical Care Time: Yes Total Critical Care Time: 45 Attestation: I personally spent ____45__ minutes devoted to the care of this critically ill patient. This time excludes the time for billable procedures. Attestation Statement - Attestation Attestation: I examined this patient and my medical decision-making was reviewed with the Resident Physician. I agree with the documented findings, disposition and treatment plan as described except to the extent set forth below. Hyperosmolar non ketotic state, altered mental status, iv fluids, insulin, also has a face lesion. Will admit to ICU for ongoing rescu of ams in the setting of Hyperosmolar non ketotic state. I spent greater than 35 minutes of critical care time excluding billable procedures.
[2018-08-03] MEDS: Insulin Human Regular 100 UNIT in 0.9 % Sodium Chloride 100 ML IVC SCH (22:31)
[2018-08-03] MEDS: 0.9 % Sodium Chloride 1,000 ML IVC SCH (23:00)
[2018-08-03] MEDS ORDERED: D5% in 0.45% NACL w KCl 20 MEQ/1,000 ML MLS IVC PRN (23:44)
[2018-08-03] MEDS ORDERED: Naloxone 0.4 MG/ML INJ IVP PRN (23:44)
[2018-08-03] MEDS ORDERED: Insulin Human Regular 100 UNIT in 0.9 % Sodium Chloride 100 ML IVC SCH (23:45)
[2018-08-03] MEDS ORDERED: Levofloxacin 750 MG/150 ML 750 MG/150 ML BAG IVPB SCH (23:45)
[2018-08-03] MEDS ORDERED: Potassium Phosphate 44 MEQ in 0.9 % Sodium Chloride 250 ML IVPB PRN (23:48)
[2018-08-04] MEDS: Insulin Human Regular 100 UNIT in 0.9 % Sodium Chloride 100 ML IVC SCH
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
[2018-08-04] MEDS: 0.45 % Sodium Chloride w/KCl 20 MEQ/1,000 ML MLS IVC SCH ×2 (00:31→02:30)
[2018-08-04] MEDS: 0.9 % Sodium Chloride 1,000 ML IVC SCH ×3 (00:34→23:53)
[2018-08-04] MEDS: *HR* Heparin 5,000 UNIT/ML VIAL SQ SCH ×3 (00:46→18:13)
[2018-08-04 01:16] LABS: BUN/Creatinine Ratio 22 (6-26); Blood Urea Nitrogen 17 mg/dL (6-20); Calcium 9.3 mg/dL (8.6-10.3); Carbon Dioxide 24 mEq/L (23-29); Chloride 97 mEq/L (98-107); Glucose 580 mg/dL (70-105); Osmolality,Calculated 296 (280-300); Potassium 3.7 mEq/L (3.5-5.1); Sodium 129 mEq/L (136-145); eGFR For Non-African Americans > 60 (> 60)
[2018-08-04 04:25] LABS: Basophils % 0.5 %; Eosinophils # 0.4 K/mcL (0.0-0.6); Hematocrit 37.1 % (37.5-50.1); Hemoglobin 13.2 g/dL (12.9-16.9); Immature Granulocytes % 0.2 % (0-4); Lymphocytes # 2.5 K/mcL (0.6-4.6); Mean Corpuscular HGB Conc 35.6 g/dL (31.6-35.5); Mean Corpuscular Hemoglobin 32.1 pg (28.0-33.3); Mean Corpuscular Volume 90.3 fL (83.0-100.0); Mean Platelet Volume 10.3 fL (9.4-12.4); Monocytes # 0.5 K/mcL (0.0-1.3); Monocytes % 6.2 %; Neutrophils # 5.3 K/mcL (1.6-8.9); Platelet Count 197 K/mcL (140-400); Red Blood Count 4.11 M/mcL (4.19-5.50); Red Cell Distribution Width 12.2 % (11.5-14.5); Segmented Neutrophils % 60.1 %
[2018-08-04 04:31] LABS: Alanine Aminotransferase 111 Units/L (7-52); Albumin 3.2 g/dL (3.5-5.7); Albumin/Globulin Ratio 0.9 (1.1-2.2); Alkaline Phosphatase 121 Units/L (34-104); Aspartate Amino Transferase 79 Units/L (13-39); BUN/Creatinine Ratio 22 (6-26); Bilirubin,Total 0.3 mg/dL (0.3-1.0); Blood Urea Nitrogen 13 mg/dL (6-20); Calcium 8.5 mg/dL (8.6-10.3); Carbon Dioxide 23 mEq/L (23-29); Chloride 103 mEq/L (98-107); Globulin 3.5 g/dL (2.4-3.5); Glucose 285 mg/dL (70-105); Osmolality,Calculated 282 (280-300); Potassium 3.8 mEq/L (3.5-5.1); Sodium 131 mEq/L (136-145); Total Protein 6.7 g/dL (6.4-8.9); eGFR For Non-African Americans > 60 (> 60)
[2018-08-04] MEDS ORDERED: Aminoglycoside Consult 1 EACH MC ONE (07:45)
[2018-08-04] MEDS ORDERED: Dextrose Gel 15 GM/37.5 ML TUBE PO PRN ×2 (08:22)
[2018-08-04] MEDS ORDERED: D5% in Water 1,000 ML IVC PRN (08:22)
[2018-08-04] MEDS ORDERED: *HR* Dextrose 50 % in Water (Syg) 50 ML SYRINGE IVP PRN (08:22)
[2018-08-04] MEDS ORDERED: Insulin DETEMIR 100 UNIT/ML X5UNITS SQ ONE (08:23)
[2018-08-04] MEDS ORDERED: Insulin LISPRO 300 UNITS/3 ML VIAL SQ SCH (08:30)
[2018-08-04] MEDS: Insulin LISPRO 300 UNITS/3 ML VIAL SQ SCH ×5 (08:44→21:04)
[2018-08-04] MEDS ORDERED: Ibuprofen 400 MG TABLET PO PRN (09:08)
--- NOTE | 2018-08-04 09:22 | Internal Med Progress Note ---
<Frandy Arcos S - Last Filed: 08/04/18 11:28> Hospitalist Progress Note - Encounter Date of Encounter: 08/04/18 Time of Encounter: 09:17 - Subjective Interval History: Pt is seen at the bedside and was admitted last night for AMS. He was brought to [facility] by his cousin and the pt states that he was very confused and had left side d facial pain. He is unsure about how long the symptoms were going on for, said possibly a few days. He reported feeling very weak and tired on admission. He was unable to provide a hx of BG measurements because he doesn't have a monitor at home. He reports being diagnosed with T2DM a few years ago. He takes Lantus 12 U BID and Lispo 8U TID. He told the night resident that he tried to pop the "pimple" from his face and that he also had similar lesions on his left elbow and right forearm. He has a hx of MRSA skin infxns. This morning the pt c/o pain all over and in his right face. He denies any chest pain, fever/chills, SOB, n/v/d, or abdominal pain. -the nurse reported no overnight events - Exam Vitals: Temp Pulse Resp BP Pulse Ox 97.6 F 60 16 127/92 97 08/04/18 07:02 08/04/18 07:02 08/04/18 07:02 08/04/18 07:02 08/04/18 07:02 Exam: General: sleepy, without distress. unkept HEENT: Head atraumatic, normocephalic Neck: nontender to palpation, absent lymphadenopathy, Cardiovascualr: Regular rate and rhythm with no murmur Lungs: Clear to auscultation bilaterally, not in respiratory distress Abdomen: Soft nontender, nondistended positive bowel sounds, absent hepatomegaly Skin: Left cheek scab with surrounding erythema, right posterior forearm scab with surrounding erythema and left elbow induration with erythema. MSK: no edema, normal strength - Assessment and Plan (1) Hyperglycemic hyperosmolar nonketotic coma Current Visit: Yes Status: Acute Assessment and Plan: On presentation, glucose was 1037. Glucose went down to 285. Recheck this morni ng was 118 -anion gap was 9 on admission -lactic acid 1.0 -ABG pH 7.45 Pseduohyponatremia 118; corrected sodium 113 on admission Today: sodium is 131, corrected sodium 134 HbA1c is 16.5% Plan: - pt was given 2L of NS bolus - was transittioned to 1/2 NS with K for 2 L then transitioned to 250mL / hr , changed to 125cc/hr 0.9% NS - ibuprofen and percocet for pain - monitoring electrolytes - check BMP, CBC in AM - transitioned pt from insulin drip to SQ insulin , MDSS and 8U humalog at mealtime (2) Skin abscess Current Visit: Yes Status: Acute Assessment and Plan: Pt has a hx of MRSA infxn -tested (+) MRSA PCR on this admission -abscess is on left side of face; reports having left elbow and right posterior forearm abscess Ultrasound didn't show any loculations or pockets of fluid for I&D CT head negative Plan: - Vancomycin and Levaquin day 1 - blood cultures pending (3) Metabolic encephalopathy Current Visit: Yes Status: Resolved Assessment and Plan: Most likely due to HHS, dehydration and hyperglycemia Toxicolog showed salicultes <2.5, acetominopehn <10 -carboxyhemoglobin level 8.6 -ethyl alcohol <10 -Pt has extensive hx of IVDU -UDS showed (+) for opiates, amphetamines, and BZ Plan: - see torrez as per above for HHS (4) Diabetes mellitus Current Visit: No Status: Chronic Assessment and Plan: See plan as above for HSS - HbA1c pending - monitor glucose - MDSS , 12U humalog at mealtimes (5) Tobacco abuse Current Visit: No Status: Chronic Assessment and Plan: smokes 1ppd -offered NRT (6) Anxiety and depression Current Visit: No Status: Chronic Assessment and Plan: Chronic -escitralopram and seroquel (7) Hepatitis C Current Visit: No Status: Chronic Assessment and Plan: Chronic hepatitis C -tested (+) for hepatiis C in may -AST 102 on admission ---> 79 -ALT 132 on admission ---> 111 today -follow up out patient GI (8) DVT prophylaxis Current Visit: Yes Status: Acute Assessment and Plan: SQ heparin (9) Transaminitis Current Visit: No Status: Chronic Assessment and Plan: See plan as per above for hepatitis C. (10) Hypertension Current Visit: No Status: Chronic Assessment and Plan: BP this morning is 127/92 -controlled -on Zestril DVT Prophylaxis: heparin sq 5000U q12hr - Time Spent with Patient Total time spent is greater than 50% in coordination of care (as documented) at patient's floor/unit and/or counseling patient: less than 15 minutes Plan of Care Discussed with: patient Internal Medicine: Result - Labs CBC & Chem 7: 08/04/18 03:45 08/04/18 08:59 Labs: Short CBC 08/03/18 08/04/18 Range/Units 20:42 03:45 WBC 9.0 8.8 (4.3-11.1) K/mcL Hgb 14.2 13.2 (12.9-16.9) g/dL Hct 43.0 37.1 L (37.5-50.1) % Plt Count 193 197 (140-400) K/mcL Neutrophils # 6.2 5.3 (1.6-8.9) K/mcL BMP 08/03/18 08/04/18 08/04/18 20:42 00:36 03:45 Sodium 118 L* 129 L D 131 L Potassium 4.9 3.7 3.8 Chloride 85 L 97 L 103 Carbon Dioxide 24 24 23 BUN 20 17 13 Creatinine 1.03 0.78 0.58 L Glucose 1037 H* 580 H* 285 H Calcium 9.1 9.3 8.5 L Cardiac Enzymes 08/03/18 Range/Units 20:42 Troponin I < 0.03 (< 0.04) ng/mL Liver Function 08/03/18 08/04/18 Range/Units 20:42 03:45 Total Bilirubin 0.5 0.3 (0.3-1.0) mg/dL AST 102 H 79 H (13-39) Units/L ALT 132 H 111 H (7-52) Units/L Alkaline Phosphatase 172 H 121 H (34-104) Units/L Albumin 3.6 3.2 L (3.5-5.7) g/dL - Impressions Impressions Head CT 08/03/18 20:48 IMPRESSION: No acute intracranial abnormality. D/ / Gabriel Mcgarry MD / Gabriel Mcgarry MD Interpreting Provider: Gabriel Mcgarry MD Consult Discharge Plan - Plan Referrals: Vincent Liz [Resident] - 08/12/18 4:00 pm (appointment for 08-05-@1500 has been cancelled ) Tara Rashid CNP [Advanced Practice Nurse] - 08/08/18 11:00 am ( this appointment for 08-05-@ 0930 was cancelled) <Veronica Huang - Last Filed: 08/04/18 17:29> Hospitalist Progress Note - Exam Vitals: Temp Pulse Resp BP Pulse Ox 97.9 F 61 14 133/88 97 08/04/18 15:42 08/04/18 15:42 08/04/18 15:42 08/04/18 15:42 08/04/18 15:42 - Assessment and Plan (1) Diabetes mellitus Current Visit: No Status: Chronic (2) Tobacco abuse Current Visit: No Status: Chronic (3) Anxiety and depression Current Visit: No Status: Chronic (4) Hepatitis C Current Visit: No Status: Chronic (5) DVT prophylaxis Current Visit: Yes Status: Acute (6) Transaminitis Current Visit: No Status: Chronic (7) Hyperglycemic hyperosmolar nonketotic coma Current Visit: Yes Status: Acute (8) Skin abscess Current Visit: Yes Status: Acute (9) Metabolic encephalopathy Current Visit: Yes Status: Resolved (10) Hypertension Current Visit: No Status: Chronic - Time Spent with Patient Total time spent is greater than 50% in coordination of care (as documented) at patient's floor/unit and/or counseling patient: Internal Medicine: Result - Labs CBC & Chem 7: 08/04/18 03:45 08/04/18 08:59 Labs: Short CBC 08/03/18 08/04/18 Range/Units 20:42 03:45 WBC 9.0 8.8 (4.3-11.1) K/mcL Hgb 14.2 13.2 (12.9-16.9) g/dL Hct 43.0 37.1 L (37.5-50.1) % Plt Count 193 197 (140-400) K/mcL Neutrophils # 6.2 5.3 (1.6-8.9) K/mcL BMP 08/03/18 08/04/18 08/04/18 20:42 00:36 03:45 Sodium 118 L* 129 L D 131 L Potassium 4.9 3.7 3.8 Chloride 85 L 97 L 103 Carbon Dioxide 24 24 23 BUN 20 17 13 Creatinine 1.03 0.78 0.58 L Glucose 1037 H* 580 H* 285 H Calcium 9.1 9.3 8.5 L 08/04/18 08:59 Sodium 132 L Potassium 3.8 Chloride 104 Carbon Dioxide 22 L BUN 10 Creatinine 0.53 L Glucose 80 Calcium 8.5 L Cardiac Enzymes 08/03/18 Range/Units 20:42 Troponin I < 0.03 (< 0.04) ng/mL Liver Function 08/03/18 08/04/18 Range/Units 20:42 03:45 Total Bilirubin 0.5 0.3 (0.3-1.0) mg/dL AST 102 H 79 H (13-39) Units/L ALT 132 H 111 H (7-52) Units/L Alkaline Phosphatase 172 H 121 H (34-104) Units/L Albumin 3.6 3.2 L (3.5-5.7) g/dL - Impressions Impressions Head CT 08/03/18 20:48 IMPRESSION: No acute intracranial abnormality. D/ / Gabriel Mcgarry MD / Gabriel Mcgarry MD Interpreting Provider: Gabriel Mcgarry MD - Attending Attestation I examined this patient and my medical decision-making was reviewed with the Resident Physician Dr. Arcos. I agree with the documented findings, disposition and treatment plan as described except to the extent set forth below. Mr. Taveras is a 37 year old male with history of type 2 diabetes presented to ER with altered mental status with severely elevated blood sugars. Pt was admitted in the hospital and started him Insulin gtt. His sugars improved and switched to his home regimen. Gen: A, A, O x 3 Chest: Diminished BS b/l HEENT: folliculitis a/p 1. Acute hyperglycemia hypersomolar state 2. Acute metabolic encephaloapthy Improving Cont Levemir + ISS Medium + Lispro 8 U TID 3. Folliculitis h/o MRSA switch to PO Bactrim <Frandy Arcos S - Last Filed: 08/04/18 11:28> (2) Skin abscess Qualifiers: Site of cutaneous abscess: face Qualified Code(s): L02.01 - Cutaneous abscess of face (4) Diabetes mellitus Qualifiers: Diabetes mellitus type: type 2 Diabetes mellitus mcfp insulin use: with mcfp use Diabetes mellitus complication status: with hyperglycemia Qualified Code(s): E11.65 - Type 2 diabetes mellitus with hyperglycemia; Z79.4 - [facility] (current) use of insulin (7) Hepatitis C Qualifiers: Viral hepatitis chronicity: chronic Hepatic coma status: without hepatic coma Qualified Code(s): B18.2 - Chronic viral hepatitis C (10) Hypertension Qualifiers: Hypertension type: essential hypertension Qualified Code(s): I10 - Essential (primary) hypertension <Veronica Huang - Last Filed: 08/04/18 17:29> (1) Diabetes mellitus Qualifiers: Diabetes mellitus type: type 2 Diabetes mellitus meterman insulin use: with mcfp use Diabetes mellitus complication status: with hyperglycemia Qualified Code(s): E11.65 - Type 2 diabetes mellitus with hyperglycemia; Z79.4 - [facility] (current) use of insulin (4) Hepatitis C Qualifiers: Viral hepatitis chronicity: chronic Hepatic coma status: without hepatic coma Qualified Code(s): B18.2 - Chronic viral hepatitis C (8) Skin abscess Qualifiers: Site of cutaneous abscess: face Qualified Code(s): L02.01 - Cutaneous abscess of face (10) Hypertension Qualifiers: Hypertension type: essential hypertension Qualified Code(s): I10 - Essential (primary) hypertension
[2018-08-04 09:51] LABS: BUN/Creatinine Ratio 19 (6-26); Blood Urea Nitrogen 10 mg/dL (6-20); Calcium 8.5 mg/dL (8.6-10.3); Carbon Dioxide 22 mEq/L (23-29); Chloride 104 mEq/L (98-107); Glucose 80 mg/dL (70-105); Osmolality,Calculated 272 (280-300); Potassium 3.8 mEq/L (3.5-5.1); Sodium 132 mEq/L (136-145); eGFR For Non-African Americans > 60 (> 60)
[2018-08-04 10:27] LABS: Amphetamine Screen,Urine Positive ng/mL (Cutoff=1000); Barbiturate Screen,Urine Negative ng/mL (Cutoff=200); Benzodiazepines Screen,Urine Positive ng/mL (Cutoff=200); Cannabinoid Screen,Urine Negative ng/mL (Cutoff = 50); Cocaine Screen,Urine Negative ng/mL (Cutoff= 300); Opiate Screen,Urine Positive ng/mL (Cutoff=300); Phencyclidine Screen,Urine Negative ng/mL (Cutoff=25)
[2018-08-04] MEDS: Lisinopril 20 MG TABLET PO SCH (11:00)
[2018-08-04] MEDS: *HR* OxyCODONE/APAP 5/325 TABLET PO PRN ×2 (11:01→19:26)
[2018-08-04 11:19] LABS: Estimated Average Glucose 427 mg/dl; Hemoglobin A1C 16.5 %
[2018-08-04] MEDS: Sulfamethoxazole/Trimeth DS 1 EACH TABLET PO SCH (21:03)
[2018-08-05] MEDS: *HR* OxyCODONE/APAP 5/325 TABLET PO PRN ×4 (01:27→20:32)
[2018-08-05] MEDS: *HR* Heparin 5,000 UNIT/ML VIAL SQ SCH ×2 (05:43→17:54)
[2018-08-05 06:19] LABS: Basophils % 0.4 %; Eosinophils # 0.3 K/mcL (0.0-0.6); Eosinophils % 3.4 %; Hematocrit 43.3 % (37.5-50.1); Immature Granulocytes % 0.2 % (0-4); Lymphocytes # 2.4 K/mcL (0.6-4.6); Lymphocytes % 25.5 %; Mean Corpuscular HGB Conc 34.4 g/dL (31.6-35.5); Mean Corpuscular Hemoglobin 31.5 pg (28.0-33.3); Mean Corpuscular Volume 91.5 fL (83.0-100.0); Mean Platelet Volume 10.2 fL (9.4-12.4); Monocytes # 0.5 K/mcL (0.0-1.3); Monocytes % 5.3 %; Platelet Count 193 K/mcL (140-400); Red Blood Count 4.73 M/mcL (4.19-5.50); Red Cell Distribution Width 11.9 % (11.5-14.5); Segmented Neutrophils % 65.2 %
[2018-08-05 06:20] LABS: Hemoglobin 14.9 g/dL (12.9-16.9)
[2018-08-05] MEDS: Nicotine 21 MG PATCH.TD24 TD SCH (06:22)
[2018-08-05 07:20] LABS: BUN/Creatinine Ratio 20 (6-26); Blood Urea Nitrogen 13 mg/dL (6-20); Calcium 8.9 mg/dL (8.6-10.3); Carbon Dioxide 22 mEq/L (23-29); Chloride 99 mEq/L (98-107); Glucose 446 mg/dL (70-105); Osmolality,Calculated 285 (280-300); Potassium 4.8 mEq/L (3.5-5.1); Sodium 128 mEq/L (136-145); eGFR For Non-African Americans > 60 (> 60)
[2018-08-05] MEDS: Lisinopril 20 MG TABLET PO SCH (07:45)
[2018-08-05] MEDS: Sulfamethoxazole/Trimeth DS 1 EACH TABLET PO SCH ×2 (07:45→22:09)
[2018-08-05] MEDS: Insulin LISPRO 300 UNITS/3 ML VIAL SQ SCH ×8 (07:46→22:12)
--- NOTE | 2018-08-05 08:42 | Discharge Summary ---
<Emmanuel Mortensen - Last Filed: 08/05/18 20:30> Orders not resulted at time of discharge: Pending orders 08/03/18 23:44 Culture,Blood [BC] Stat 08/04/18 08:30 Urine tox screen [Drug Screen, Urine] [UCHEM] Stat 08/06/18 04:00 Complete Blood Count [HEME] AM 0400 Comprehensive Metabolic Panel AM 0400 HIV-1&2 Antibody & p24 Ag AM 0400 Treponema Pallidum Ab AM 0400 - Discharge Diagnosis (1) Diabetes mellitus Status: Chronic Qualifiers: Diabetes mellitus type: type 2 Diabetes mellitus fci insulin use: with technician terminal and repeater use Diabetes mellitus complication status: with hyperglycemia Qualified Code(s): E11.65 - Type 2 diabetes mellitus with hyperglycemia; Z79.4 - terminal computer operator (current) use of insulin (2) Tobacco abuse Status: Chronic (3) Anxiety and depression Status: Chronic (4) Hepatitis C Status: Chronic Qualifiers: Viral hepatitis chronicity: chronic Hepatic coma status: without hepatic coma Qualified Code(s): B18.2 - Chronic viral hepatitis C (5) DVT prophylaxis Status: Acute (6) Transaminitis Status: Chronic (7) Hyperglycemic hyperosmolar nonketotic coma Status: Acute (8) Skin abscess Status: Acute Qualifiers: Site of cutaneous abscess: face Qualified Code(s): L02.01 - Cutaneous abscess of face (9) Metabolic encephalopathy Status: Resolved (10) Hypertension Status: Chronic Qualifiers: Hypertension type: essential hypertension Qualified Code(s): I10 - Essential (primary) hypertension Hospital course: Mr. Taveras is a 37 year old male - Time Spent with Patient Total time spent providing and/or coordinating discharge services: - Discharge Medications Prescriptions: RX: Nicotine Patch [Nicoderm] 21 mg TD DAILY 30 Days #30 patch.[id number] RX: Sulfamethoxazole/Trimeth DS [Bactrim Ds] 1 each PO BID 12 Days #24 tablet Home Medications: RX: Famotidine [Pepcid] 20 mg PO BID 05/27/18 [History] RX: Gabapentin [Neurontin] 300 mg PO TID 05/27/18 [History] RX: Quetiapine Fumarate [Seroquel] 50 mg PO HS 05/27/18 [History] RX: Tizanidine HCl 4 mg PO TID PRN 05/27/18 [History] RX: Blood Sugar Diagnostic [Glucose Test Strip] 1 each QID #160 strip 05/30/18 [Rx] RX: Blood-Glucose Meter [Accu-Chek Jessica Connect] 1 each QID #1 kit 05/30/18 [Rx] RX: Insulin Glargine [Lantus] 12 unit SQ BID #2 vial 05/30/18 [Rx] RX: Insulin LISPRO [HumaLOG] 8 units SQ TIDWM #2 vial 05/30/18 [Rx] RX: Lancets [Blood Lancets] 1 each QID #160 each 05/30/18 [Rx] RX: Lisinopril [Zestril] 20 mg PO DAILY 30 Days #30 tablet 05/30/18 [Rx] RX: Syrge-Ndl,Ins 0.3 ml Half Gary [Insulin Syringe] 1 each QID #160 disp.syrin 05/30/18 [Rx] RX: Escitalopram [Lexapro] 5 mg PO DAILY 08/04/18 [History] RX: Nicotine Patch [Nicoderm] 21 mg TD DAILY 30 Days #30 patch.[email or web address] 08/05/18 [Rx] RX: Sulfamethoxazole/Trimeth DS [Bactrim Ds] 1 each PO BID 12 Days #24 tablet 08/05/18 [Rx] Allergies/Adverse Reactions: Allergy/AdvReac Type Severity Reaction Status Date / Time Buspirone Allergy Hives Verified 05/29/18 13:28 escitalopram [From Lexapro] Allergy Hives Verified 08/06/18 07:00 Penicillins Allergy Difficulty Verified 12/26/17 12:51 Breathing Date of admission: 08/04/18 15:05 Primary care physician: PCP NONE - Constitutional Vitals: Temp Pulse Resp BP Pulse Ox 98.7 F 92 15 122/86 98 08/05/18 18:47 08/05/18 18:47 08/05/18 18:47 08/05/18 18:47 08/05/18 18:47 - Patient Status Disposition: Home, Self-Care Condition: Good - Discharge Instructions Instructions: Diabetic Ketoacidosis (DC), Basic Carbohydrate Counting (DC) Follow Up With: Vincent Liz [Resident] - 08/12/18 4:00 pm (appointment for 08-05-@1500 has been cancelled ) Tara Rashid, ENA [Advanced Practice Nurse] - 08/08/18 11:00 am ( this appointment for 08-05-@ 0930 was cancelled) Xiang Kessler MD [Partnered Physician] - (Web request entered, office will call patient at home with date and time of appointment. thank you) - Attending Attestation I examined this patient and my medical decision-making was reviewed with the Resident Physician. I agree with the documented findings, disposition and treatment plan as described except to the extent set forth below. <Frandy Arcos S - Last Filed: 08/07/18 11:23> - NOTES TO OUTPATIENT PROVIDER Notes to Outpatient Provider: Follow up on control of blood sugars. Follow up for pain control. Follow up on hepatitis C. Orders not resulted at time of discharge: Pending orders 08/03/18 23:44 Culture,Blood [BC] Stat 08/04/18 08:30 Urine tox screen [Drug Screen, Urine] [UCHEM] Stat Date of Encounter: 08/07/18 Time of Encounter: 08:38 - Discharge Diagnosis (1) Hyperglycemic hyperosmolar nonketotic coma Priority: Primary Status: Acute (2) Skin abscess Priority: Secondary Status: Acute Qualifiers: Site of cutaneous abscess: face Qualified Code(s): L02.01 - Cutaneous abscess of face (3) Metabolic encephalopathy Priority: Secondary Status: Resolved (4) Hypertension Priority: Secondary Status: Chronic Qualifiers: Hypertension type: essential hypertension Qualified Code(s): I10 - Essential (primary) hypertension (5) Diabetes mellitus Priority: Secondary Status: Chronic Qualifiers: Diabetes mellitus type: type 2 Diabetes mellitus technician terminal and repeater insulin use: with technician terminal and repeater use Diabetes mellitus complication status: with hyperglycemia Qualified Code(s): E11.65 - Type 2 diabetes mellitus with hyperglycemia; Z79.4 - nursing home (current) use of insulin (6) Tobacco abuse Priority: Secondary Status: Chronic (7) Anxiety and depression Priority: Secondary Status: Chronic (8) Hepatitis C Priority: Secondary Status: Chronic Qualifiers: Viral hepatitis chronicity: chronic Hepatic coma status: without hepatic coma Qualified Code(s): B18.2 - Chronic viral hepatitis C (9) DVT prophylaxis Priority: Secondary Status: Acute (10) Transaminitis Priority: Secondary Status: Chronic Hospital course: Mr. Taveras is a 37 year old male that was admitted 08/04 for AMS. He was brought to [facility] by his cousin and the pt states that he was very confused and had left sided facial pain. He is unsure about how long the symptoms were going on for, said possibly a few days. He reported feeling very weak and tired on admission. He was unable to provide a hx of BG measurements because he doesn't have a monitor at home. He reports being diagnosed with T2DM a few years ago. He takes Lantus 12 U BID and Lispo 8U TID. - on admission the pt glucose was 1037 which subsequently went down to 285 and repeat check on 08/04 was 118 - anion gap was 9 on admission, lactic acid 1.0 - night of admission: Pseduohyponatremia 118; corrected sodium 113 on admission - 08/04: sodium is 131, corrected sodium 134 - pt was given 2L of NS bolus on admission - was transittioned to 1/2 NS with K for 2 L then transitioned to 250mL / hr , changed to 125cc/hr 0.9% NS - HbA1c is 16.5% He told the night resident that he tried to pop the "pimple" from his face and that he also had similar lesions on his left elbow and right forearm. He has a hx of MRSA skin infxns. - ultrasound didn't show any loculations or pockets of fluid for I&D - he was started on Vancomycin and Levaquin , which was subsequently changed to Bactrim DS The pt will be discharged with 12 more days of Bactrim DS BID The pt will be scheduled with Dr. Liz in the [facility] The pt needs an outpt follow up with GI for evaluation of hepatitis C Discharge discussed with: patient, nurse Time spent discussing smoking cessation with patient: 3 to 10 minutes - Time Spent with Patient Total time spent providing and/or coordinating discharge services: Less than 30 minutes Date of admission: 08/04/18 15:05 Primary care physician: PCP NONE Discharging clinician: Frandy Arcos Anticipated date of discharge: 08/05/18 - Constitutional Vitals: Temp Pulse Resp BP Pulse Ox 98.0 F 56 15 124/80 100 08/05/18 07:28 08/05/18 07:28 08/05/18 07:28 08/05/18 07:28 08/05/18 07:28 General appearance: Present: cachectic, mild distress, A&O X 3, loss of weight, answers questions appropriately Exam: General: sleepy, without distress. unkept HEENT: Head atraumatic, normocephalic Neck: nontender to palpation, absent lymphadenopathy, Cardiovascualr: Regular rate and rhythm with no murmur Lungs: Clear to auscultation bilaterally, not in respiratory distress Abdomen: Soft nontender, nondistended positive bowel sounds, absent hepatomegaly Skin: Left cheek scab with surrounding erythema, right posterior forearm scab with surrounding erythema and left elbow induration with erythema. MSK: no edema, normal strength - Patient Status Functional capacity at discharge: independent ambulation Overall status at discharge: patient is progressing back to baseline - Diet and Activity Activity: increase activity as tolerated Diet: diabetic diet
[2018-08-05] MEDS ORDERED: Insulin DETEMIR 100 UNIT/ML X5UNITS SQ SCH ×3 (11:30→21:00)
--- NOTE | 2018-08-05 11:34 | Internal Med Progress Note ---
<Frandy Arcos S - Last Filed: 08/05/18 11:31> Hospitalist Progress Note - Encounter Date of Encounter: 08/05/18 Time of Encounter: 11:32 - Subjective Interval History: Pt is seen at the bedside and was admitted 08/04 for AMS. He was brought to [facility] by his cousin and the pt states that he was very confused and had left sided fac ial pain. He is unsure about how long the symptoms were going on for, said possibly a few days. He reported feeling very weak and tired on admission. He was unable to provide a hx of BG measurements because he doesn't have a monitor at home. He reports being diagnosed with T2DM a few years ago. He takes Lantus 12 U BID and Lispo 8U TID. He told the night resident that he tried to pop the "pimple" from his face and that he also had similar lesions on his left elbow and right forearm. He has a hx of MRSA skin infxns. This morning the pt has no acute complaints or concerns. He denies n/v/d, blurry vision, chest pain, SOB, or abd pain. - Exam Vitals: Temp Pulse Resp BP Pulse Ox 98.0 F 56 15 124/80 100 08/05/18 07:28 08/05/18 07:28 08/05/18 07:28 08/05/18 07:28 08/05/18 07:28 Exam: General: sleepy, without distress. unkept HEENT: Head atraumatic, normocephalic Neck: nontender to palpation, absent lymphadenopathy, Cardiovascualr: Regular rate and rhythm with no murmur Lungs: Clear to auscultation bilaterally, not in respiratory distress Abdomen: Soft nontender, nondistended positive bowel sounds, absent hepatomegaly Skin: Left cheek scab with surrounding erythema, right posterior forearm scab with surrounding erythema and left elbow induration with erythema. MSK: no edema, normal strength - Assessment and Plan (1) Hyperglycemic hyperosmolar nonketotic coma Current Visit: Yes Status: Acute Assessment and Plan: On presentation, glucose was 1037. Glucose went down to 285. Recheck this morning was 118 -anion gap was 9 on admission -lactic acid 1.0 -ABG pH 7.45 Pseduohyponatremia 118; corrected sodium 113 on admission 08/04: sodium is 131, corrected sodium 134 08/05: sodium 128, corrected calcium 135 HbA1c is 16.5% Glucose this morning was 388, pt had glucose readings into the 4 and 500's last night -denies any s/s of hyperglycemia, confusion, blurry vision Plan: - pt was given 2L of NS bolus when admitted - was transittioned to 1/2 NS with K for 2 L then transitioned to 250mL / hr , changed to 125cc/hr 0.9% NS - ibuprofen and percocet for pain - monitoring electrolytes - diabetic diet - check BMP, CBC in AM - transitioned pt from insulin drip to SQ insulin , HDSS and 10U humalog at mealtime - one time dose of 7U levemir now - start levemir at bedtime 15U - dispo: glucose control under 250's (2) Skin abscess Current Visit: Yes Status: Acute Assessment and Plan: Pt has a hx of MRSA infxn -tested (+) MRSA PCR on this admission -abscess is on left side of face; reports having left elbow and right posterior forearm abscess Ultrasound didn't show any loculations or pockets of fluid for I&D CT head negative Plan: - Vancomycin and Levaquin discontinued - blood cultures pending - bactrim DS BID day 2 (3) Metabolic encephalopathy Current Visit: Yes Status: Resolved Assessment and Plan: Most likely due to HHS, dehydration and hyperglycemia Toxicolog showed salicultes <2.5, acetominopehn <10 -carboxyhemoglobin level 8.6 -ethyl alcohol <10 -Pt has extensive hx of IVDU -UDS showed (+) for opiates, amphetamines, and BZ Plan: - see torrez as per above for HHS (4) Diabetes mellitus Current Visit: No Status: Chronic Assessment and Plan: See plan as above for HSS - HbA1c pending - monitor glucose - HDSS , 10U Humalog at mealtimes, 7 U levemir now, 15U levemir at bedtime (5) Tobacco abuse Current Visit: No Status: Chronic Assessment and Plan: smokes 1ppd -offered NRT (6) Anxiety and depression Current Visit: No Status: Chronic Assessment and Plan: Chronic -escitralopram and seroquel (7) Hepatitis C Current Visit: No Status: Chronic Assessment and Plan: Chronic hepatitis C -tested (+) for hepatiis C in may -AST 102 on admission ---> 79 -ALT 132 on admission ---> 111 today -follow up out patient GI -will check RPR and HIV antibodies (8) DVT prophylaxis Current Visit: Yes Status: Acute Assessment and Plan: SQ heparin (9) Transaminitis Current Visit: No Status: Chronic Assessment and Plan: See plan as per above for hepatitis C. (10) Hypertension Current Visit: No Status: Chronic Assessment and Plan: BP this morning is 124/80 -controlled -on Zestril DVT Prophylaxis: heparin sq 5000U q12hr - Time Spent with Patient Total time spent is greater than 50% in coordination of care (as documented) at patient's floor/unit and/or counseling patient: less than 15 minutes Plan of Care Discussed with: patient Internal Medicine: Result - Labs CBC & Chem 7: 08/05/18 05:53 08/05/18 05:53 Labs: Short CBC 08/05/18 Range/Units 05:53 WBC 9.3 (4.3-11.1) K/mcL Hgb 14.9 D (12.9-16.9) g/dL Hct 43.3 (37.5-50.1) % Plt Count 193 (140-400) K/mcL Neutrophils # 6.0 (1.6-8.9) K/mcL BMP 08/05/18 05:53 Sodium 128 L Potassium 4.8 D Chloride 99 Carbon Dioxide 22 L BUN 13 Creatinine 0.64 L Glucose 446 H Calcium 8.9 Consult Discharge Plan - Plan Referrals: Vincent Liz [Resident] - 08/12/18 4:00 pm (appointment for 08-05-@1500 has been cancelled ) Tara Rashid CNP [Advanced Practice Nurse] - 08/08/18 11:00 am ( this appointment for 08-05-@ 0930 was cancelled) Xiang Kessler MD [Partnered Physician] - (Web request entered, office will call patient at home with date and time of appointment. thank you) Prescriptions: Nicotine Patch [Nicoderm] 21 mg TD DAILY 30 Days #30 patch.td24 Sulfamethoxazole/Trimeth DS [Bactrim Ds] 1 each PO BID 12 Days #24 tablet <Emmanuel Mortensen - Last Filed: 08/05/18 17:30> Hospitalist Progress Note - Exam Vitals: Temp Pulse Resp BP Pulse Ox 97.7 F 91 15 119/80 100 08/05/18 14:58 08/05/18 14:58 08/05/18 14:58 08/05/18 14:58 08/05/18 14:58 - Assessment and Plan (1) Diabetes mellitus Current Visit: No Status: Chronic (2) Tobacco abuse Current Visit: No Status: Chronic (3) Anxiety and depression Current Visit: No Status: Chronic (4) Hepatitis C Current Visit: No Status: Chronic (5) DVT prophylaxis Current Visit: Yes Status: Acute (6) Transaminitis Current Visit: No Status: Chronic (7) Hyperglycemic hyperosmolar nonketotic coma Current Visit: Yes Status: Acute (8) Skin abscess Current Visit: Yes Status: Acute (9) Metabolic encephalopathy Current Visit: Yes Status: Resolved (10) Hypertension Current Visit: No Status: Chronic - Time Spent with Patient Total time spent is greater than 50% in coordination of care (as documented) at patient's floor/unit and/or counseling patient: Internal Medicine: Result - Labs CBC & Chem 7: 08/05/18 05:53 08/05/18 05:53 Labs: Short CBC 08/05/18 Range/Units 05:53 WBC 9.3 (4.3-11.1) K/mcL Hgb 14.9 D (12.9-16.9) g/dL Hct 43.3 (37.5-50.1) % Plt Count 193 (140-400) K/mcL Neutrophils # 6.0 (1.6-8.9) K/mcL BMP 08/05/18 05:53 Sodium 128 L Potassium 4.8 D Chloride 99 Carbon Dioxide 22 L BUN 13 Creatinine 0.64 L Glucose 446 H Calcium 8.9 - Attending Attestation I examined this patient and my medical decision-making was reviewed with the Resident Physician. I agree with the documented findings, disposition and treatment plan as described except to the extent set forth below. <Frandy Arcos - Last Filed: 08/05/18 11:31> (2) Skin abscess Qualifiers: Site of cutaneous abscess: face Qualified Code(s): L02.01 - Cutaneous abscess of face (4) Diabetes mellitus Qualifiers: Diabetes mellitus type: type 2 Diabetes mellitus prison insulin use: with prison use Diabetes mellitus complication status: with hyperglycemia Qualified Code(s): E11.65 - Type 2 diabetes mellitus with hyperglycemia; Z79.4 - penitentiary (current) use of insulin (7) Hepatitis C Qualifiers: Viral hepatitis chronicity: chronic Hepatic coma status: without hepatic coma Qualified Code(s): B18.2 - Chronic viral hepatitis C (10) Hypertension Qualifiers: Hypertension type: essential hypertension Qualified Code(s): I10 - Essential (primary) hypertension <Emmanuel Mortensen - Last Filed: 08/05/18 17:30> (1) Diabetes mellitus Qualifiers: Diabetes mellitus type: type 2 Diabetes mellitus prison insulin use: with intermediate frame tender use Diabetes mellitus complication status: with hyperglycemia Qualified Code(s): E11.65 - Type 2 diabetes mellitus with hyperglycemia; Z79.4 - penitentiary (current) use of insulin (4) Hepatitis C Qualifiers: Viral hepatitis chronicity: chronic Hepatic coma status: without hepatic coma Qualified Code(s): B18.2 - Chronic viral hepatitis C (8) Skin abscess Qualifiers: Site of cutaneous abscess: face Qualified Code(s): L02.01 - Cutaneous abscess of face (10) Hypertension Qualifiers: Hypertension type: essential hypertension Qualified Code(s): I10 - Essential (primary) hypertension
[2018-08-05] MEDS ORDERED: Insulin DETEMIR 100 UNIT/ML X5UNITS SQ STA (12:59)
[2018-08-05] MEDS ORDERED: tiZANidine 4 MG TABLET PO PRN (14:14)
[2018-08-05] MEDS: Gabapentin 300 MG CAPSULE PO SCH ×2 (15:33→22:09)
[2018-08-05] MEDS ORDERED: Insulin Regular, Human 100 UNIT/ML SQ STA (16:39)
[2018-08-05] MEDS: Insulin Regular, Human 100 UNIT/ML SQ STA ×2 (17:49→17:51)
[2018-08-05] MEDS: Famotidine 20 MG TABLET PO SCH (22:09)
[2018-08-06] MEDS: *HR* OxyCODONE/APAP 5/325 TABLET PO PRN (04:36)
[2018-08-06 05:00] LABS: Basophils # 0.1 K/mcL (0.0-0.2); Basophils % 0.6 %; Eosinophils # 0.4 K/mcL (0.0-0.6); Eosinophils % 4.8 %; Hemoglobin 15.6 g/dL (12.9-16.9); Immature Granulocytes % 0.5 % (0-4); Lymphocytes # 2.5 K/mcL (0.6-4.6); Lymphocytes % 29.2 %; Mean Corpuscular HGB Conc 35.5 g/dL (31.6-35.5); Mean Corpuscular Hemoglobin 31.9 pg (28.0-33.3); Mean Platelet Volume 9.9 fL (9.4-12.4); Monocytes # 0.5 K/mcL (0.0-1.3); Monocytes % 5.3 %; Platelet Count 240 K/mcL (140-400); Red Blood Count 4.89 M/mcL (4.19-5.50); Red Cell Distribution Width 12.1 % (11.5-14.5); Segmented Neutrophils % 59.6 %
[2018-08-06 05:15] LABS: Alanine Aminotransferase 129 Units/L (7-52); Albumin 3.5 g/dL (3.5-5.7); Albumin/Globulin Ratio 0.9 (1.1-2.2); Alkaline Phosphatase 88 Units/L (34-104); Aspartate Amino Transferase 111 Units/L (13-39); BUN/Creatinine Ratio 27 (6-26); Bilirubin,Total 0.4 mg/dL (0.3-1.0); Blood Urea Nitrogen 15 mg/dL (6-20); Calcium 9.1 mg/dL (8.6-10.3); Carbon Dioxide 23 mEq/L (23-29); Chloride 105 mEq/L (98-107); Glucose 211 mg/dL (70-105); Osmolality,Calculated 283 (280-300); Sodium 133 mEq/L (136-145); Total Protein 7.5 g/dL (6.4-8.9); eGFR For Non-African Americans > 60 (> 60)
[2018-08-06] MEDS: *HR* Heparin 5,000 UNIT/ML VIAL SQ SCH (05:48)
[2018-08-06 08:09] VITALS: BP 125/90
[2018-08-06] MEDS: Insulin LISPRO 300 UNITS/3 ML VIAL SQ SCH ×2 (09:26→09:27)
--- NOTE | 2018-08-06 09:26 | Discharge Summary ---
<Frandy Arcos S - Last Filed: 08/06/18 09:23> - NOTES TO OUTPATIENT PROVIDER Notes to Outpatient Provider: Follow up on control of blood sugars. Follow up for pain control. Follow up on hepatitis C. Orders not resulted at time of discharge: Pending orders 08/03/18 23:44 Culture,Blood [BC] Stat 08/04/18 08:30 Urine tox screen [Drug Screen, Urine] [UCHEM] Stat Date of Encounter: 08/06/18 Time of Encounter: 09:24 - Discharge Diagnosis (1) Hyperglycemic hyperosmolar nonketotic coma Priority: Primary Status: Acute (2) Skin abscess Priority: Secondary Status: Acute Qualifiers: Site of cutaneous abscess: face Qualified Code(s): L02.01 - Cutaneous abscess of face (3) Metabolic encephalopathy Priority: Secondary Status: Resolved (4) Diabetes mellitus Priority: Secondary Status: Chronic Qualifiers: Diabetes mellitus type: type 2 Diabetes mellitus snf insulin use: with termite technician use Diabetes mellitus complication status: with hyperglycemia Qualified Code(s): E11.65 - Type 2 diabetes mellitus with hyperglycemia; Z79.4 - MCFP (current) use of insulin (5) Tobacco abuse Priority: Secondary Status: Chronic (6) Anxiety and depression Priority: Secondary Status: Chronic (7) Hepatitis C Priority: Secondary Status: Chronic Qualifiers: Viral hepatitis chronicity: chronic Hepatic coma status: without hepatic coma Qualified Code(s): B18.2 - Chronic viral hepatitis C (8) DVT prophylaxis Priority: Secondary Status: Acute (9) Transaminitis Priority: Secondary Status: Chronic (10) Hypertension Priority: Secondary Status: Chronic Qualifiers: Hypertension type: essential hypertension Qualified Code(s): I10 - Essential (primary) hypertension Hospital course: Mr. Taveras is a 37 year old male that was admitted 08/04 for AMS. He was brought to [facility] by his cousin and the pt states that he was very confused and had left sided facial pain. He is unsure about how long the symptoms were going on for, said possibly a few days. He reported feeling very weak and tired on admission. He was unable to provide a hx of BG measurements because he doesn't have a monitor at home. He reports being diagnosed with T2DM a few years ago. He takes Lantus 12 U BID and Lispo 8U TID. - on admission the pt glucose was 1037 which subsequently went down to 285 and repeat check on 08/04 was 118 - anion gap was 9 on admission, lactic acid 1.0 - night of admission: Pseduohyponatremia 118; corrected sodium 113 on admission - 08/04: sodium is 131, corrected sodium 134 - pt was given 2L of NS bolus on admission - was transittioned to 1/2 NS with K for 2 L then transitioned to 250mL / hr , changed to 125cc/hr 0.9% NS - HbA1c is 16.5% - glucose this morning 211, stable for discharge He told the night resident that he tried to pop the "pimple" from his face and that he also had similar lesions on his left elbow and right forearm. He has a hx of MRSA skin infxns. - ultrasound didn't show any loculations or pockets of fluid for I&D - he was started on Vancomycin and Levaquin , which was subsequently changed to Bactrim DS The pt will be discharged with 12 more days of Bactrim DS BID The pt will be scheduled with Dr. Liz in the [facility] The pt needs an outpt follow up with GI for evaluation of hepatitis C - note that RPR and HIV antibodies were negative Discharge discussed with: patient - Time Spent with Patient Total time spent providing and/or coordinating discharge services: Less than 30 minutes - Discharge Medications Prescriptions: Nicotine Patch [Nicoderm] 21 mg TD DAILY 30 Days #30 patch.td24 Sulfamethoxazole/Trimeth DS [Bactrim Ds] 1 each PO BID 12 Days #24 tablet Home Medications: Famotidine [Pepcid] 20 mg PO BID 05/27/18 [History] Gabapentin [Neurontin] 300 mg PO TID 05/27/18 [History] Quetiapine Fumarate [Seroquel] 50 mg PO HS 05/27/18 [History] Tizanidine HCl 4 mg PO TID PRN 05/27/18 [History] Blood Sugar Diagnostic [Glucose Test Strip] 1 each QID #160 strip 05/30/18 [Rx] Blood-Glucose Meter [Accu-Chek Jessica Connect] 1 each QID #1 kit 05/30/18 [Rx] Insulin Glargine [Lantus] 12 unit SQ BID #2 vial 05/30/18 [Rx] Insulin LISPRO [HumaLOG] 8 units SQ TIDWM #2 vial 05/30/18 [Rx] Lancets [Blood Lancets] 1 each QID #160 each 05/30/18 [Rx] Lisinopril [Zestril] 20 mg PO DAILY 30 Days #30 tablet 05/30/18 [Rx] Syrge-Ndl,Ins 0.3 ml Half Gary [Insulin Syringe] 1 each QID #160 disp.syrin 05/30/18 [Rx] Escitalopram [Lexapro] 5 mg PO DAILY 08/04/18 [History] Nicotine Patch [Nicoderm] 21 mg TD DAILY 30 Days #30 patch.td24 08/05/18 [Rx] Sulfamethoxazole/Trimeth DS [Bactrim Ds] 1 each PO BID 12 Days #24 tablet 08/05/18 [Rx] Allergies/Adverse Reactions: Allergy/AdvReac Type Severity Reaction Status Date / Time Buspirone Allergy Hives Verified 05/29/18 13:28 escitalopram [From Lexapro] Allergy Hives Verified 08/06/18 07:00 Penicillins Allergy Difficulty Verified 12/26/17 12:51 Breathing Date of admission: 08/04/18 15:05 Primary care physician: PCP NONE Discharging clinician: Frandy Arcos Anticipated date of discharge: 08/06/18 - Constitutional Vitals: Temp Pulse Resp BP Pulse Ox 97.6 F 83 14 125/90 99 08/06/18 08:08 08/06/18 08:08 08/06/18 08:08 08/06/18 08:08 08/06/18 08:08 General appearance: Present: cachectic, mild distress, A&O X 3, loss of weight, answers questions appropriately Exam: General: without distress. unkept HEENT: Head atraumatic, normocephalic Neck: nontender to palpation, absent lymphadenopathy, Cardiovascualr: Regular rate and rhythm with no murmur Lungs: Clear to auscultation bilaterally, not in respiratory distress Abdomen: Soft nontender, nondistended positive bowel sounds, absent hepatomegaly Skin: Left cheek scab with surrounding erythema, right posterior forearm scab with surrounding erythema and left elbow induration with erythema. MSK: no edema, normal strength - Patient Status Disposition: Home, Self-Care Condition: Good Functional capacity at discharge: independent ambulation Overall status at discharge: patient is progressing back to baseline - Discharge Instructions Instructions: Diabetic Ketoacidosis (DC), Basic Carbohydrate Counting (DC) Follow Up With: Vincent Liz [Resident] - 08/12/18 4:00 pm (appointment for 08-05-@1500 has been cancelled ) Tara Rashid CNP [Advanced Practice Nurse] - 08/08/18 11:00 am ( this appointment for 08-05-@ 0930 was cancelled) Xiang Kessler MD [Partnered Physician] - (Web request entered, office will call patient at home with date and time of appointment. thank you) - Diet and Activity Activity: increase activity as tolerated Diet: diabetic diet <Emmanuel Mortensen - Last Filed: 08/06/18 17:42> Orders not resulted at time of discharge: Pending orders 08/03/18 23:44 Culture,Blood [BC] Stat 08/04/18 08:30 Urine tox screen [Drug Screen, Urine] [UCHEM] Stat - Discharge Diagnosis (1) Diabetes mellitus Status: Chronic Qualifiers: Diabetes mellitus type: type 2 Diabetes mellitus termite technician insulin use: with termite technician use Diabetes mellitus complication status: with hyperglycemia Qualified Code(s): E11.65 - Type 2 diabetes mellitus with hyperglycemia; Z79.4 - exterminator (current) use of insulin (2) Tobacco abuse Status: Chronic (3) Anxiety and depression Status: Chronic (4) Hepatitis C Status: Chronic Qualifiers: Viral hepatitis chronicity: chronic Hepatic coma status: without hepatic coma Qualified Code(s): B18.2 - Chronic viral hepatitis C (5) DVT prophylaxis Status: Acute (6) Transaminitis Status: Chronic (7) Hyperglycemic hyperosmolar nonketotic coma Status: Acute (8) Skin abscess Status: Acute Qualifiers: Site of cutaneous abscess: face Qualified Code(s): L02.01 - Cutaneous abscess of face (9) Metabolic encephalopathy Status: Resolved (10) Hypertension Status: Chronic Qualifiers: Hypertension type: essential hypertension Qualified Code(s): I10 - Essential (primary) hypertension Hospital course: Mr. Taveras is a 37 year old male - Time Spent with Patient Total time spent providing and/or coordinating discharge services: Date of admission: 08/04/18 15:05 Primary care physician: PCP NONE - Constitutional Vitals: Temp Pulse Resp BP Pulse Ox 97.6 F 83 14 125/90 99 08/06/18 08:08 08/06/18 08:08 08/06/18 08:08 08/06/18 08:08 08/06/18 08:08 - Attending Attestation I examined this patient and my medical decision-making was reviewed with the Resident Physician. I agree with the documented findings, disposition and treatment plan as described except to the extent set forth below. Addendum entered and electronically signed by Emmanuel Mortensen MD 08/10/18 20:55: .
[2018-08-06] MEDS: Famotidine 20 MG TABLET PO SCH (09:28)
[2018-08-06] MEDS: Gabapentin 300 MG CAPSULE PO SCH (09:28)
[2018-08-06] MEDS: Sulfamethoxazole/Trimeth DS 1 EACH TABLET PO SCH (09:28)
[2018-08-06] MEDS: Lisinopril 20 MG TABLET PO SCH (09:28)
[2018-08-06] MEDS: Nicotine 21 MG PATCH.TD24 TD SCH (09:30)
--- NOTE | 2018-08-08 15:41 | Electrocardiograph Report ---
[address] [address] Test Date: 2018-08-03 Pat Name: Lucien Velizfield Department: [id number] Room: [facility] Gender: M Floatman: : 1980 Requested By: Tej Mendoza Order Number: [id number] Reading MD: Sunday Quiñonez Measurements Intervals [place] Rate: 60 P: 55 NM: 144 QRS: 72 QRSD: 110 T: 62 QT: 468 QTc: 468 Interpretive Statements Sinus rhythm Electronically Signed On 08-08-2018 15:40:35 EDT by Sunday Quiñonez
== END 2018-08-06 10:25 | disposition home or self-care (01) | DRG 420 ==
LOC: EMEROOARM 19:27 → ICNU 19:27 → 2NNU 08-04 05:08 → 3ANU 08-04 15:40
PROVIDERS: ADMIT Family Medicine; ATTEND Family Medicine